=== PATIENT | female | born 1930 | race Caucasian/White ===

== ENCOUNTER 2017-12-22 17:02 | Observation (INO) | payer OTHER ==
[~2017-12-22] VITALS: Ht 160 cm; Wt 74.9 kg
[~2017-12-22 17:02] MED LIST: AMIT10TA6 PO; ASPCH81X PO; B-COTAB18 PO; CHOLTAB5 PO; DIGO0.122 PO; DOXY100T PO; FRS/40 PO; FSM70 PO; LEVA1NEB19 INH; LPT20 PO; NITR0.2D3 TD; NTRGSL/4 UT; POTA-327 PO; PRED-301 PO; PRED10TA PO; PRIM50TA29 PO; PRLSR20 PO; SALI0.6517 NAE; TIOTCAP INH; TRAMTAB5 PO; WARF1TAB PO
[2017-12-22] MEDS ORDERED: SYMIN160 INH (17:26)
[2017-12-22] MEDS ORDERED: WARF1TAB PO (17:26)
[2017-12-22] MEDS ORDERED: INSULIN IV INFUSION PROTOCOL STA (17:49)
[2017-12-22] MEDS ORDERED: NovoLIN-R INSULIN PER UNIT CHARGE IV STA (17:49)
[2017-12-22] MEDS ORDERED: CALCIUM GLUCONATE 10% 10 ML VIAL IV STA (17:49)
[2017-12-22 17:52] LABS: BASO % 0.3 %; BASO ABS # 0.03 K/uL (0-0.2); EOS % 1.1 %; EOS ABS # 0.11 K/uL (0-0.5); HEMATOCRIT 37.2 % (37-47); HEMOGLOBIN 11.9 g/dL (12.0-16.0); IG# 0.03 K/uL (0.00-0.02); LYMPH % 16.7 %; LYMPH ABS # 1.66 K/uL (1.2-3.4); MEAN CELL VOLUME 92.1 fL (80-100); MEAN CORPUSCULAR HEMOGLOBIN 29.5 pg (25-34); MEAN PLATELET VOLUME 9.4 fL (7.4-10.4); MONO % 5.5 %; MONO ABS # 0.55 K/uL (0.11-0.59); NEUT % 76.1 %; NEUT ABS # 7.56 K/uL (1.4-6.5); PLATELET COUNT 212 K/uL (130-400); RED CELL DISTRIBUTION WIDTH CV 13.9 % (11.5-14.5); RED CELL DISTRIBUTION WIDTH SD 47.1 fL (36.4-46.3); WHITE BLOOD COUNT 9.94 K/uL (4.8-10.8)
[2017-12-22] MEDS ORDERED: SODIUM CHLORIDE 0.9% 500ML 500 ML IV STA ×2 (17:55→18:32)
[2017-12-22] MEDS ORDERED: SEVERE STRESS LEVEL ONE (18:00)
[2017-12-22] MEDS ORDERED: DKA GOAL RANGE 150-250 mg/dl 1 EA ONE (18:00)
[2017-12-22] MEDS ORDERED: POTA10CA28 PO (18:01)
[2017-12-22] MEDS ORDERED: SPRIN/30 INH (18:01)
[2017-12-22] MEDS ORDERED: ACET-1256 PO (18:01)
[2017-12-22] MEDS ORDERED: LNX125 PO (18:01)
[2017-12-22] MEDS ORDERED: DOCU100C31 PO (18:01)
[2017-12-22] MEDS ORDERED: XPNINS31 PO (18:01)
[2017-12-22] MEDS ORDERED: FLUO10CA48 PO (18:01)
[2017-12-22] MEDS ORDERED: LEVA45AE INH (18:01)
[2017-12-22] MEDS ORDERED: ASPIRIN 81 MG CHEW PO STA (18:09)
[2017-12-22] MEDS ORDERED: SODIUM CHLORIDE 0.9% 1000ML 1,000 ML IV STA (18:09)
[2017-12-22 18:10] LABS: BLOOD UREA NITROGEN 14 mg/dl (7-18); CALCIUM 9.7 mg/dl (8.5-10.1); CARBON DIOXIDE 31 mmol/L (21-32); CREATININE 0.86 mg/dl (0.60-1.20); GLUCOSE 105 mg/dl (70-99); POTASSIUM 4.5 mmol/L (3.5-5.1); SODIUM 136 mmol/L (136-145)
[2017-12-22 18:15] LABS: CKMB 1.6 ng/ml (0.5-3.6)
--- NOTE | 2017-12-22 18:19 | DIAGNOSTIC IMAGING REPORT ---
CHEST ONE VIEW PORTABLE CLINICAL HISTORY: 87 years-old Female presenting with Chest Pain. TECHNIQUE: Portable upright AP view of the chest was obtained. COMPARISON: 08/26/2016. FINDINGS: Atherosclerosis of aortic arch. Cardiac silhouette enlarged. Pulmonary vascular prominence. Calcified thyroid nodule projects over the right paratracheal region. Hazy bibasilar opacities greater on the right. Small right pleural effusion. No large pneumothorax. Osseous structures normal. IMPRESSION: 1. Cardiomegaly with suggestion of volume overload. 2. Minimal bibasilar opacities likely atelectasis. 3. Small right pleural effusion. Electronically signed by: Lewis Bellamy M.D. 12/22/2017 6:17 PM Dictated Date/Time: 12/22/2017 6:16 PM
[2017-12-22] MEDS: NITROGLYCERIN 0.4 MG SL PER TAB CHARGE SL PRN ×2 (18:47→18:50)
[2017-12-22] MEDS ORDERED: INSULIN ASPART 100 UNITS/ML 3 ML PEN SC SCH (19:00)
[2017-12-22] MEDS ORDERED: OXGN (20:01)
[2017-12-22 21:11] LABS: ALBUMIN 3.5 gm/dl (3.4-5.0); TOTAL PROTEIN 6.6 gm/dl (6.4-8.2)
[2017-12-22 21:30] VITALS: BP 143/79; PULSE 64; TEMP 36.8; O2SAT 96; Ht 160 cm; Wt 74.9 kg
[2017-12-22 21:33] VITALS: O2SAT 98
[2017-12-22] MEDS ORDERED: ACETAMINOPHEN 325 MG TAB PO ONE (21:51)
[2017-12-22] MEDS ORDERED: ATORVASTATIN 20 MG TAB PO ONE (21:53)
[2017-12-22] MEDS ORDERED: TRAMADOL HCL 50 MG TAB PO ONE (21:53)
[2017-12-22] MEDS ORDERED: WARFARIN SOD 2 MG TAB PO ONE (22:00)
[2017-12-22] MEDS ORDERED: TRAMADOL HCL 50 MG TAB PO PRN (22:00)
[2017-12-22] MEDS ORDERED: NITROGLYCERIN 0.4 MG SL PER TAB CHARGE SL PRN (22:00)
[2017-12-22] MEDS ORDERED: HYDROmorphone INJ 0.5 MG/0.5 ML SYR IV PRN (22:00)
[2017-12-22] MEDS ORDERED: ACETAMINOPHEN 325 MG TAB PO PRN ×2 (22:00)
[2017-12-22] MEDS ORDERED: PROCHLORPERAZINE INJ 5 MG in SYRINGE 4 ML IV PRN (22:00)
[2017-12-22] MEDS ORDERED: LEVALBUTEROL/IPRATROPIUM NEB INH PRN (22:00)
[2017-12-22] MEDS ORDERED: IPRATROPIUM BROMIDE NEB SOLN 0.02% 2.5 ML VIAL INH PRN (22:30)
[2017-12-22] MEDS ORDERED: LEVALBUTEROL 1.25MG/0.5ML NEB INH PRN (22:30)
[2017-12-22 23:19] VITALS: BP 117/74; PULSE 67; TEMP 37; O2SAT 95
--- NOTE | 2017-12-23 00:19 | EMERGENCY ROOM VISIT NOTE ---
History Report prepared by Jennifer: Yoon Araujo Under the Supervision of: Dr. German Stanley D.O. First contact with patient: 17:35 Chief Complaint: CARDIAC ASSESSMENT Stated Complaint: TIGHTNESS IN CHEST, DOESN'T FEEL WELL- HX PE History of Present Illness The patient is an 87 year old female who presents to the Emergency Room with complaints of constant chest pain beginning 3 days ago. The patient describes her pain as "crushing". She also reports some shortness of breath. She denies any modifying or worsening factors. The patient states her pain does not radiate anywhere. The patient wears 2 L of oxygen at baseline. The patient takes Coumadin and her last level was 2.9. The patient has a history of PEs and atrial fibrillation. Pt denies headache, abdominal pain, change in vision, fevers, nausea, vomiting, diarrhea, pain with urination, and melena. Source of History: patient Onset: three days ago Position: chest Quality: other (crushing) Timing: constant Modifying Factors (Relieving): other (none) Associated Symptoms: + chest pain, + SOB, No abdominal pain Review of Systems See HPI for pertinent positives & negatives. A total of 10 systems reviewed and were otherwise negative. 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 (13) GERD (gastroesophageal reflux disease) (14) History of DVT (deep vein thrombosis) (15) History of pulmonary embolism (16) History of TIA (transient ischemic attack) (17) History of urinary calculi (18) Osteoporosis (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, postinflammatory (20) Tremor, essential (21) Warfarin anticoagulation Surgical Problems: (1) Status post cardiac catheterization (2) Status post cataract extraction (3) Status post hysterectomy Family History Lung disease FATHER Melanoma BROTHER Stroke BROTHER Social History Smoking Status: Never Smoker Marital Status: Housing Status: lives alone Occupation Status: retired Current/Historical Medications Scheduled Alendronate Sodium (Alendronate Sodium), 70 MG PO WK Amitriptyline Hcl (Elavil), 20 MG PO HS Aspirin (Aspirin Chewable), 81 MG PO DAILY Atorvastatin (Lipitor), 20 MG PO HS B-Complex Vitamins (Vitamin B Complex), 1 TAB PO DAILY Budesonide/Formoterol Fumarate (Symbicort 160/4.5 Inhaler ), 2 PUFFS INH BID Cholecalciferol (D-1000), 1,000 UNITS PO BID Digoxin (Digoxin), 0.125 MG PO 6XWK Docusate Sodium (Docusate Sodium), 1 CAP PO BID Fluoxetine (Prozac), 10 MG PO DAILY Furosemide (Lasix), 40 MG PO 5XWK Nitroglycerin (Nitrostat), 0.4 MG UT PRN Nitroglycerin (Nitroglycerin Transdermal), 1 PATCH TD ONAMOFFPM Omeprazole (Prilosec), 20 MG PO BID Potassium Chloride (Micro-K Ext Rel), 10 MEQ PO 5XWK Prednisone (Prednisone), 5 MG PO DAILY Primidone (Mysoline), 100 MG PO QPM Tiotropium [place] (Spiriva Handihaler), 1 CAP INH DAILY Tramadol/Acetaminophen (Ultracet), 1-2 TABS PO TID Warfarin Sodium (Coumadin), 2 MG PO DAILY Scheduled PRN Acetaminophen (Tylenol), 500 MG PO BID PRN for Pain Doxycycline Hyclate (Doxycycline Hyclate), 100 MG PO UD PRN for copd rescue kit Levalbuterol (Levalbuterol HCl), 1 VIAL PO Q4 PRN for Shortness of Breath Levalbuterol Tartrate (Levalbuterol Tartrate Hfa), 2 PUFF INH Q4 PRN for Wheezing Miscellaneous Medications Home O2 Therapy (Oxygen), 2 LITERS NA Allergies Coded Allergies: Adhesives (Verified Allergy, Unknown, `, 10/20/14) Fluticasone (Verified Allergy, Unknown, UNKNOWN, 10/20/14) Levofloxacin (Verified Allergy, Unknown, ITCHING AND REDNESS AT IV SITE, 10/20/14) Sulfa Drugs (Verified Allergy, Unknown, unknown, 10/20/14) Albuterol (Verified Adverse Reaction, Mild, TACHYCARDIA, 10/20/14) Physical Exam Vital Signs Date Time Temp Pulse Resp B/P (MAP) Pulse Ox O2 Delivery O2 Flow Rate FiO2 12/22/17 21:33 69 18 135/75 98 Nasal Cannula 2.0 12/22/17 21:30 36.8 64 16 143/79 96 Nasal Cannula 2.0 12/22/17 18:53 74 18 112/87 97 Room Air 12/22/17 18:05 Nasal Cannula 2.0 12/22/17 18:03 75 20 115/60 95 Nasal Cannula 2.0 12/22/17 17:28 68 12/22/17 17:19 99 Nasal Cannula 2.0 12/22/17 17:08 36.9 74 20 122/74 92 Room Air Physical Exam GENERAL: Sitting up in bed, alert, disheveled appearing, well nourished, no distress, non-toxic EYE EXAM: normal conjunctiva. OROPHARYNX: no exudate, no erythema, lips, buccal mucosa, and tongue normal and mucous membranes are moist NECK: supple, no nuchal rigidity, no adenopathy, non-tender LUNGS: Clear to auscultation. Normal chest wall mechanics HEART: no murmurs, S1 normal and S2 normal ABDOMEN: abdomen soft, non-tender, normo-active bowel sounds, no masses, no rebound or guarding. CHEST: No reproducible anterior chest wall pain BACK: Back is symmetrical on inspection and there is no deformity, no midline tenderness, no CVA tenderness. SKIN: no rashes and no bruising UPPER EXTREMITIES: upper extremities are grossly normal. LOWER EXTREMITIES: No pitting edema. NEURO EXAM: Normal sensorium, cranial nerves II-XII grossly intact, normal speech, no gross weakness of arms, no gross weakness of legs. Gross sensation intact. Medical Decision & Procedures ER Provider Diagnostic Interpretation: Radiology results as stated below per my review and the radiologist's interpretation: CHEST ONE VIEW PORTABLE FINDINGS: Atherosclerosis of aortic arch. Cardiac silhouette enlarged. Pulmonary vascular prominence. Calcified thyroid nodule projects over the right paratracheal region. Hazy bibasilar opacities greater on the right. Small right pleural effusion. No large pneumothorax. Osseous structures normal. IMPRESSION: 1. Cardiomegaly with suggestion of volume overload. 2. Minimal bibasilar opacities likely atelectasis. 3. Small right pleural effusion. Electronically signed by: Lewis Bellamy M.D. Laboratory Results 12/22/17 17:38 Red Blood Count 4.04, Mean Corpuscular Volume 92.1, Mean Corpuscular Hemoglobin 29.5, Mean Corpuscular Hemoglobin Concent 32.0, Mean Platelet Volume 9.4, Neutrophils (%) (Auto) 76.1, Lymphocytes (%) (Auto) 16.7, Monocytes (%) (Auto) 5.5, Eosinophils (%) (Auto) 1.1, Basophils (%) (Auto) 0.3, Neutrophils # (Auto) 7.56, Lymphocytes # (Auto) 1.66, Monocytes # (Auto) 0.55, Eosinophils # (Auto) 0.11, Basophils # (Auto) 0.03 12/22/17 17:38 Test 12/22/17 17:38 12/22/17 20:31 White Blood Count 9.94 K/uL (4.8-10.8) Red Blood Count 4.04 M/uL (4.2-5.4) Hemoglobin 11.9 g/dL (12.0-16.0) Hematocrit 37.2 % (37-47) Mean Corpuscular Volume 92.1 fL (80-100) Mean Corpuscular Hemoglobin 29.5 pg (25-34) Mean Corpuscular Hemoglobin Concent 32.0 g/dl (32-36) Platelet Count 212 K/uL (130-400) Mean Platelet Volume 9.4 fL (7.4-10.4) Neutrophils (%) (Auto) 76.1 % Lymphocytes (%) (Auto) 16.7 % Monocytes (%) (Auto) 5.5 % Eosinophils (%) (Auto) 1.1 % Basophils (%) (Auto) 0.3 % Neutrophils # (Auto) 7.56 K/uL (1.4-6.5) Lymphocytes # (Auto) 1.66 K/uL (1.2-3.4) Monocytes # (Auto) 0.55 K/uL (0.11-0.59) Eosinophils # (Auto) 0.11 K/uL (0-0.5) Basophils # (Auto) 0.03 K/uL (0-0.2) RDW Standard Deviation 47.1 fL (36.4-46.3) RDW Coefficient of Variation 13.9 % (11.5-14.5) Immature Granulocyte % (Auto) 0.3 % Immature Granulocyte # (Auto) 0.03 K/uL (0.00-0.02) Prothrombin Time 20.7 SECONDS (9.0-12.0) Prothromb Time International Ratio 2.0 (0.9-1.1) Anion Gap 5.0 mmol/L (3-11) Est Creatinine Clear Calc Drug Dose 42.7 ml/min Estimated GFR () 69.4 Estimated GFR (Non- 59.9 BUN/Creatinine Ratio 16.3 (10-20) Calcium Level 9.7 mg/dl (8.5-10.1) Total Creatine Kinase 67 U/L (26-192) Creatine Kinase MB 1.6 ng/ml (0.5-3.6) Creatine Kinase MB Ratio 2.4 (0-3.0) Magnesium Level 2.3 mg/dl (1.8-2.4) Total Bilirubin 0.3 mg/dl (0.2-1) Direct Bilirubin 0.2 mg/dl (0-0.2) Aspartate Amino Transf (AST/SGOT) 18 U/L (15-37) Alanine Aminotransferase (ALT/SGPT) 17 U/L (12-78) Alkaline Phosphatase 38 U/L (45-117) Pro-B-Type Natriuretic Peptide 644 pg/ml (0-1800) Total Protein 6.6 gm/dl (6.4-8.2) Albumin 3.5 gm/dl (3.4-5.0) Lipase 123 U/L (73-393) Laboratory results per my review. Medications Administered Medications (Trade) Dose Ordered Sig/Kiel Route Start Time Stop Time Status Last Admin Dose Admin Sodium Chloride 500 ml @ 999 mls/hr Q31M STAT IV 12/22/17 17:55 12/22/17 18:25 DC 12/22/17 17:55 999 MLS/HR Aspirin (Aspirin Chew) 324 mg NOW STAT PO 12/22/17 18:09 12/22/17 18:10 DC 12/22/17 18:46 324 MG Nitroglycerin (Nitrostat Tab) 0.4 mg Q5M PRN SL 12/22/17 18:15 12/22/17 22:11 DC 12/22/17 18:50 0.4 MG Sodium Chloride 500 ml @ 999 mls/hr Q31M STAT IV 12/22/17 18:32 12/22/17 19:02 DC 12/22/17 18:32 999 MLS/HR ECG Per My Interpretation Indication: chest pain Rate (beats per minute): 69 Rhythm: atrial fibrillation Findings: other (non specific st changes in inferior and anterior ) Comparison ECG Date: 02/21/16 Change: no significant change ED Course ED COURSE: Vital signs were reviewed and showed normal The patients medical record was reviewed The above diagnostic studies were performed and reviewed. ED treatments and interventions as stated above. 1744: The patient was evaluated in room B9. A complete history and physical examination was performed. 1755: Ordered Sodium Chloride 500 ml @ 999 mls/hr IV. 1809: Ordered Sodium Chloride 1000 ml @ 999 mls/hr IV, Aspirin 324 mg PO. 1815: Ordered Nitroglycerin 0.4 mg SL. 1832: Ordered Sodium Chloride 500 ml @ 999 mls/hr IV. 1840: The patient's chest pain is almost resolved with nitroglycerin. 2000: I reviewed the patient's case with Dr. Dhaliwal. He will evaluate the patient for further management. 2012: Upon reevaluation, the patient is resting comfortably.I discussed my findings with the patient and She understands and agrees with the treatment plan. Based on the patients age, coexisting illnesses, exam and lab findings the decision to treat as an inpatient was made. The patient remained stable while under my care. The patient will be evaluated for further management. Medical Decision Differential diagnoses includes but is not limited to acute coronary syndrome, myocardial infarction, pericarditis, pulmonary embolus, aortic dissection, pneumonia, pneumothorax, musculoskeletal, shingles, esophageal. Patient is an 87-year-old female who presents to ER for severe chest pain associated with shortness of breath which has been present for the past 3 days. CBC all BMP and troponins were unremarkable. INR was therapeutic and consequently PE was not pursued. EKG and chest x-ray were nondiagnostic. Patient was given nitroglycerin and had improvement of her symptoms. With her age and presentation did feel is reasonable to discuss case with internal medicine for possible observation overnight. Medication Reconcilliation Current Medication List: was personally reviewed by me Blood Pressure Screening Patient's blood pressure: Normal blood pressure Consults Time Called: 1949 Consulting Physician: Dr. Dhaliwal Returned Call: 2000 I reviewed the patient's case with Dr. Dhaliwal. He will evaluate the patient for further management. Impression Primary Impression: Precordial chest pain Scribe Attestation The scribe's documentation has been prepared under my direction and personally reviewed by me in its entirety. I confirm that the note above accurately reflects all work, treatment, procedures, and medical decision making performed by me. Departure Information Dispostion Being Evaluated By Hospitalist Referrals Joan Cole D.O. (PCP) Patient Instructions My [facility]
[2017-12-23] MEDS ORDERED: IV FLUIDS COMPLETED PRN (01:45)
[2017-12-23] MEDS ORDERED: LEVALBUTEROL/IPRATROPIUM NEB INH PRN (04:45)
[2017-12-23 04:52] VITALS: BP 122/76; PULSE 71; TEMP 36.6; O2SAT 95
--- NOTE | 2017-12-23 05:38 | HISTORY & PHYSICAL EXAMINATION ---
DATE OF ADMISSION: 12/22/2017 THE PATIENT'S PRIMARY CARE DOCTOR: Dr. Cole. CHIEF COMPLAINT: Chest pain. HISTORY OF PRESENT ILLNESS: History obtained from patient, family and records. 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 Recent confinement last September 2014 for shortness of breath secondary to multifactorial shortness of breath. In the last 3 days patient had chest tightness without radiation, shortness of breath on exertion. Denies weight gain. No unusual cough symptoms. Chest pain relieved by nitro given at the ER.. Patient currently comfortable. MEDICAL HISTORY: As above. A 2D echocardiogram from September 2014 showed EF of 66%, LVH, aortic valve sclerosis, moderate AR, severe TR SURGERIES: She has had hysterectomy, cataract surgery, and eye surgery. HOME MEDICATIONS: Include Xopenex, Lasix, home O2, nitroglycerin patch, Nitrostat, Prilosec, Micro-K, prednisone, Mysoline, Spiriva, Ultracet, digoxin, and Coumadin. ALLERGIES: ADHESIVE, ALBUTEROL, FLUTICASONE, LEVOFLOXACIN, SULFA. FAMILY HISTORY: Sarcoidosis, melanoma, stroke, and COPD. PERSONAL AND SOCIAL HISTORY: Nonsmoker, no chronic intake of alcoholic beverages. REVIEW OF SYSTEMS: As per HPI, all 10 systems reviewed, all other ROS negative. PHYSICAL EXAMINATION: VITAL SIGNS: Blood pressure was noted to be 140/80 MN 66 RR 18, temperature 36.8, sats 98 on 2 liters. GENERAL: Noted to be comfortable, but occasionally speaks in phrases to catch her breath (chronic as per grandson), looks younger for stated age. SKIN: Pallor, warm. HEENT: Pale palpebral conjunctivae. No ptosis. Dry mucosa. NECK: Supple, nontender. CHEST: No tenderness.Decreased breath sounds. HEART: irregular, palpable LE pulses ABDOMEN: Some distention, non-tender. EXTREMITIES: min LE edema. No tenderness, no gross deformities. NEUROLOGIC: Coherent, no gross focality other than chronic intentional tremors. LABORATORY DATA: Hemoglobin 11.9, hematocrit 37.2, white blood cells 10 platelets 212. Sodium noted to be 136, chloride 100, BUN 40, crea 1, glucose 105. BNP was normal. INR noted to be 2. Troponin 0 IMAGING DATA: Chest x-ray: atelectasis, cardiomegaly, interstitial fullness/ congestion EKG as per my interpretation, rate 70, aFib, T-wave flattening in inferior leads. ASSESSMENT AND PLAN: 1. Chest pain relieved by nitroglycerin possible acute coronary syndrome hx of nonocclusive CAD as per records 2. hypertension, stable 3. chronic respiratory failure secondary to steroid-dependent COPD/ILD on home O2 pulmonary status at baseline 4. chronic diastolic heart failure, the patient is euvolemic 5. AF, rate controlled/hx PE on Coumadin INR therapeutic chronic anemia, hemoglobin at baseline, 6. Chronic anemia, hemoglobin at baseline 7. prediabetes per records. Observation PCU. Continue aspirin for now for secondary CAD prevention. Follow cardiac markers, Cardio consult RE chest pain. (Patient known to [facility].) Further eval/management of chest pain as per cardiology. DVT prophylaxis, Coumadin, INR 2-3. Full code. MTDD
[2017-12-23 06:26] LABS: BASO % 0.5 %; BASO ABS # 0.04 K/uL (0-0.2); EOS % 3.3 %; EOS ABS # 0.26 K/uL (0-0.5); HEMATOCRIT 34.7 % (37-47); HEMOGLOBIN 11.1 g/dL (12.0-16.0); IG# 0.01 K/uL (0.00-0.02); LYMPH % 31.4 %; LYMPH ABS # 2.46 K/uL (1.2-3.4); MEAN CELL VOLUME 91.6 fL (80-100); MEAN CORPUSCULAR HEMOGLOBIN 29.3 pg (25-34); MEAN PLATELET VOLUME 9.1 fL (7.4-10.4); MONO % 7.5 %; MONO ABS # 0.59 K/uL (0.11-0.59); NEUT % 57.2 %; NEUT ABS # 4.48 K/uL (1.4-6.5); PLATELET COUNT 190 K/uL (130-400); RED CELL DISTRIBUTION WIDTH CV 14.2 % (11.5-14.5); RED CELL DISTRIBUTION WIDTH SD 47.8 fL (36.4-46.3); WHITE BLOOD COUNT 7.84 K/uL (4.8-10.8)
[2017-12-23 06:33] LABS: INR 1.8 (0.9-1.1)
[2017-12-23 07:04] LABS: CHOLESTEROL 122 mg/dl (0-200); LDL CHOLESTEROL CALCULATED 54 mg/dl
[2017-12-23 07:24] VITALS: BP 139/71; PULSE 56; TEMP 36.9; O2SAT 96
[2017-12-23] MEDS ORDERED: NITROGLYCERIN 0.2 MG/HR PATCH TD SCH (09:00)
[2017-12-23] MEDS ORDERED: DOCUSATE SODIUM 100 MG CAP PO SCH (09:00)
[2017-12-23] MEDS ORDERED: PANTOprazole SOD 40 MG TAB PO SCH (09:00)
[2017-12-23] MEDS ORDERED: TIOTROPIUM BROMIDE 5 PUFF/90 MCG INH INH SCH (09:00)
[2017-12-23] MEDS ORDERED: BUDESONIDE/FORMOTEROL FUMARATE 160/4.5 60 PUFFS/INHALER INH SCH (09:00)
[2017-12-23] MEDS ORDERED: FLUOXETINE HCL 10 MG CAP PO SCH (09:00)
[2017-12-23] MEDS ORDERED: ASPIRIN 81 MG CHEW PO SCH (09:00)
[2017-12-23 11:40] VITALS: BP 117/62; PULSE 62; TEMP 36.8; O2SAT 96
[2017-12-23] MEDS ORDERED: DIGOXIN 0.125 MG TAB PO SCH (13:00)
[2017-12-23 13:23] VITALS: BP 117/62; PULSE 62; TEMP 36.8; O2SAT 96
--- NOTE | 2017-12-23 13:23 | Discharge Instructions ---
Discharge Instructions Date of Service Dec 23, 2017. Admission Reason for Admission: Chest Pain Discharge Discharge Diagnosis / Problem: CHEST PAIN Discharge Goals Goal(s): Decrease discomfort, Improve function Activity Recommendations Activity Limitations: resume your previous activity . Instructions / Follow-Up Instructions / Follow-Up FOLLOWUP WITH FAMILY DOCTOR ON December AT 12:45PM FOLLOWUP WITH CARDIOLOGY PER FAMILY DOCTOR. Current Hospital Diet Patient's current hospital diet: AHA Diet (Heart Healthy) Discharge Diet Recommended Diet: AHA Diet (Heart Healthy) Pending Studies Studies pending at discharge: no Laboratory Results Lipid Panel Test 12/23/17 06:02 Range/Units Triglycerides Level 135 0-150 mg/dl Cholesterol Level 122 0-200 mg/dl HDL Cholesterol 41 mg/dl Cholesterol/HDL Ratio 3.0 LDL Cholesterol, Calculated 54 mg/dl Medical Emergencies . Who to Call and When: Medical Emergencies: If at any time you feel your situation is an emergency, please call 911 immediately. . Non-Emergent Contact Non-Emergency issues call your: Primary Care Provider . . "Provider Documentation" section prepared by Lai Cole. .
--- NOTE | 2017-12-23 16:35 | CARDIOLOGY CONSULTATION ---
DATE OF CONSULTATION: 12/23/2017 CONSULTATION REQUESTED BY: Frank Blanc MD REASON FOR CONSULTATION: Chest pain. HISTORY OF PRESENT ILLNESS: Mrs. Hernandez is a very pleasant 87-year-old woman who normally follows with Dr. Winter and Dennys Winn of our cardiology practice. She presented to [facility] on late evening of 12/22/2017 with a complaint of chest tightness. She states it started about 1 day ago and does not remember any trauma to her chest. She states that she does not remember any trauma to her chest. She just woke up one day and her chest felt tight. It was right in the center of her chest. She states that radiated across her left precordium but denied any further radiation into her shoulder, neck or jaw. She denied any associated shortness of breath, diaphoresis, nausea, palpitations, lightheadedness, dizziness, or syncope. She did not have any alleviating or aggravating factors, but she states the pain persisted all day, and then when she tried to go to bed, she could not get comfortable, so she came into the Emergency Department. In the Emergency Department, her workup was unremarkable and she was admitted to telemetry. She states that her pain finally resolved after receiving aspirin in the ER yesterday. PAST SURGICAL HISTORY: 1. Cardiac catheterization in 2001, showing no obstructive disease. 2. Total abdominal hysterectomy. 3. Cataract surgery. MEDICAL ILLNESSES: 1. Nonobstructive coronary artery disease with 30% to 40% LAD lesion. 2. Chronic obstructive lung disease with chronic interstitial lung disease, pulmonary fibrosis and chronic hypoxemia. 3. History of PE. 4. Persistent atrial fibrillation, on chronic Coumadin therapy. 5. Pulmonary hypertension with severe tricuspid regurgitation. 6. History of ITP. 7. Hypertension. 8. Dyslipidemia. FAMILY HISTORY: Noncontributory. SOCIAL HISTORY: Denies any alcohol, tobacco or recreational drug use. REVIEW OF SYSTEMS: As per HPI. All other review of systems reviewed and negative at this time. ALLERGIES: 1. ALBUTEROL. 2. BACTRIM. 3. FLOVENT. 4. LEVOFLOXACIN. 5. ADHESIVE TAPE. MEDICATIONS AN OUTPATIENT: 1. Aspirin 81 mg daily. 2. Atorvastatin 20 mg daily. 3. Digoxin 0.125 mg daily, 6 days a week. 4. Lasix 40 mg daily, 5 days a week. 5. Nitropatch daily. 6. Oxygen 4 liters nasal cannula with activity. 7. Spiriva daily. 8. Symbicort b.i.d. 9. Coumadin as directed by the Coumadin clinic. PHYSICAL EXAMINATION: VITALS: Temperature 36.8, pulse 62, respiratory rate 12, blood pressure 117/62. GENERAL: Awake, alert, oriented x3 in no acute distress. HEENT: Normocephalic, atraumatic. Pupils equal, round, reactive to light and accommodation. Extraocular muscles intact. Anicteric sclerae. Moist mucous membranes. NECK: No JVD, no bruit. CARDIOVASCULAR: Irregularly irregular with 4/6 holosystolic ejection murmur, greatest at the left sternal border midclavicular line fifth intercostal space without radiation. No rubs. PULMONARY: Poor air movement bilaterally with scattered rhonchi. No rales or wheezing. ABDOMEN: Bowel sounds x4, soft. No rebound, guarding, tenderness. No organomegaly. EXTREMITIES: No clubbing, cyanosis or edema. +2 pedal pulses bilaterally. SKIN: Warm and dry. MUSCULOSKELETAL: Direct palpation of her left 4th rib shows that it is stuck in exhalation with reproduction of her pain. TEST RESULTS: A 12-lead EKG performed in the Emergency Department independently reviewed at this time shows atrial fibrillation, 69 beats per minute with inferior T-wave flattening. No significant change compared to previous studies. IMPRESSION: 1. Costochondritis. 2. History of nonobstructive coronary artery disease. 3. Chronic obstructive pulmonary disease with chronic hypoxemia. 4. Pulmonary hypertension. 5. Persistent atrial fibrillation, rate controlled on chronic Coumadin therapy. RECOMMENDATIONS: It was my pleasure to see Resides in consultation today. Given the reproduction of her pain, I do believe she has suffered from costochondritis. So at this point I would treat her conservatively with NSAIDs and warm compresses. I have also demonstrated stretching movements to patient and her daughter to help return the rib to its normal positioning. A 2D echocardiogram will be completed as a matter of course, but should that come back unremarkable, then she will be discharged home with followup in our clinic in approximately 1 month. ____
--- NOTE | 2017-12-23 18:57 | Progress Note ---
Internal Med Progress Note Date of Service: Dec 23, 2017. Provider Documentation: SUBJECTIVE: resting comfortably daughter in room has point tenderness on the left side of the chest afebrile no sob no nausea OBJECTIVE: Vital Signs-as noted below Exam: General-alert and awake. Not in distress ENT-normal hearing Neck-no neck masses Lungs-cta b/l no wheezing or crackles Heart-s1 and s2 heard regular no murmurs point tenderness on left side of chest close to sternum Abdomen-soft bowel sounds present non tender no distension Extremities-no edema no erythema Neuro-alert and awake moves extremities Lab data as noted below. ASSESSMENT & PLAN: 1. 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 4. chronic diastolic heart failure, the patient is euvolemic. stable. 5. AF, rate controlled/hx PE on Coumadin INR therapeutic discharged home Vital Signs: Date Time Temp Pulse Resp B/P (MAP) Pulse Ox O2 Delivery O2 Flow Rate FiO2 12/23/17 13:23 36.8 62 20 96 Nasal Cannula 12/23/17 12:00 Room Air 12/23/17 11:40 36.8 62 20 117/62 (80) 96 12/23/17 08:00 Room Air 12/23/17 07:24 36.9 56 18 139/71 (93) 96 2.0 12/23/17 04:52 36.6 71 19 122/76 (91) 95 Nasal Cannula 2.0 12/23/17 04:00 Room Air 12/23/17 00:00 Room Air 12/22/17 23:19 37.0 67 16 117/74 (88) 95 Nasal Cannula 1.0 12/22/17 21:33 69 18 135/75 98 Nasal Cannula 2.0 12/22/17 21:30 36.8 64 16 143/79 96 Nasal Cannula 2.0 Lab Results: Results Past 24 Hours Test 12/22/17 20:31 12/22/17 22:09 12/23/17 06:02 Range/Units Magnesium Level 2.3 1.8-2.4 mg/dl Total Bilirubin 0.3 0.2-1 mg/dl Direct Bilirubin 0.2 0-0.2 mg/dl Aspartate Amino Transf (AST/SGOT) 18 15-37 U/L Alanine Aminotransferase (ALT/SGPT) 17 12-78 U/L Alkaline Phosphatase 38 45-117 U/L Pro-B-Type Natriuretic Peptide 644 0-1800 pg/ml Total Protein 6.6 6.4-8.2 gm/dl Albumin 3.5 3.4-5.0 gm/dl Lipase 123 73-393 U/L Troponin I < 0.015 < 0.015 0-0.045 ng/ml Digoxin Level 0.6 0.8-2.0 ng/ml White Blood Count 7.84 4.8-10.8 K/uL Red Blood Count 3.79 4.2-5.4 M/uL Hemoglobin 11.1 12.0-16.0 g/dL Hematocrit 34.7 37-47 % Mean Corpuscular Volume 91.6 80-100 fL Mean Corpuscular Hemoglobin 29.3 25-34 pg Mean Corpuscular Hemoglobin Concent 32.0 32-36 g/dl Platelet Count 190 130-400 K/uL Mean Platelet Volume 9.1 7.4-10.4 fL Neutrophils (%) (Auto) 57.2 % Lymphocytes (%) (Auto) 31.4 % Monocytes (%) (Auto) 7.5 % Eosinophils (%) (Auto) 3.3 % Basophils (%) (Auto) 0.5 % Neutrophils # (Auto) 4.48 1.4-6.5 K/uL Lymphocytes # (Auto) 2.46 1.2-3.4 K/uL Monocytes # (Auto) 0.59 0.11-0.59 K/uL Eosinophils # (Auto) 0.26 0-0.5 K/uL Basophils # (Auto) 0.04 0-0.2 K/uL RDW Standard Deviation 47.8 36.4-46.3 fL RDW Coefficient of Variation 14.2 11.5-14.5 % Immature Granulocyte % (Auto) 0.1 % Immature Granulocyte # (Auto) 0.01 0.00-0.02 K/uL Prothrombin Time 18.6 9.0-12.0 SECONDS Prothromb Time International Ratio 1.8 0.9-1.1 Triglycerides Level 135 0-150 mg/dl Cholesterol Level 122 0-200 mg/dl HDL Cholesterol 41 mg/dl LDL Cholesterol, Calculated 54 mg/dl VLDL Cholesterol, Calculated 27 mg/dl Cholesterol/HDL Ratio 3.0
--- NOTE | 2017-12-23 19:23 | Discharge Summary ---
Discharge Summary Date of Service Dec 23, 2017. Discharge Summary Admission Date: Dec 22, 2017 at 21:37 Discharge Date: Dec 23, 2017 Discharge Disposition: Home Principal Diagnosis: CHEST PAIN Secondary Diagnoses/Problems: chronic respiratory failure secondary to steroid-dependent COPD, interstitial lung disease, CAD as per records, aFib on Coumadin, chronic diastolic heart failure, hypertension, hyperlipidemia, history of ITP as per records, arthritis, prediabetes as per records, TIA as per records, history of tremors, chronic anemia (baseline hemoglobin 10-11). Procedures: CXR: 1. Cardiomegaly with suggestion of volume overload. 2. Minimal bibasilar opacities likely atelectasis. 3. Small right pleural effusion. Consultations: CARDIOLOGY Medication Reconciliation Continued Medications: Acetaminophen (Tylenol) 500 Mg Tab 500 MG PO BID PRN for Pain, TAB Alendronate Sodium (Alendronate Sodium) 70 Mg Tab 70 MG PO WK Amitriptyline Hcl (Elavil) 10 Mg Tab 20 MG PO HS Aspirin (Aspirin Chewable) 81 Mg Chew 81 MG PO DAILY Atorvastatin (Lipitor) 20 Mg Tab 20 MG PO HS, #30 B-Complex Vitamins (Vitamin B Complex) 1 Tab Tab 1 TAB PO DAILY Budesonide/Formoterol Fumarate (Symbicort 160/4.5 Inhaler ) Aero 2 PUFFS INH BID, INHALER Cholecalciferol (D-1000) 1,000 Unit Tab 1000 UNITS PO BID Digoxin (Digoxin) 0.125 Mg Tab 0.125 MG PO 6XWK Docusate Sodium (Docusate Sodium) 100 Mg Cap 1 CAP PO BID for 7 Days, #14 CAP Doxycycline Hyclate (Doxycycline Hyclate) 100 Mg Tab 100 MG PO UD PRN for copd rescue kit Fluoxetine (Prozac) 10 Mg Cap 10 MG PO DAILY, CAP Furosemide (Lasix) 40 Mg Tab 40 MG PO 5XWK Home O2 Therapy (Oxygen) Gas 2 LITERS NA Levalbuterol (Levalbuterol HCl) 0.31 Mg/3 Ml Nebu 1 VIAL PO Q4 PRN for Shortness of Breath Levalbuterol Tartrate (Levalbuterol Tartrate Hfa) 45 Mcg/Act Aer 2 PUFF INH Q4 PRN for Wheezing Nitroglycerin (Nitrostat) 0.4 Mg Tab 0.4 MG UT PRN, 0 Refills Nitroglycerin (Nitroglycerin Transdermal) 0.2 Mg/Hr Dis 1 PATCH TD ONAMOFFPM Omeprazole (Prilosec) 20 Mg Capcr 20 MG PO BID, 0 Refills Potassium Chloride (Micro-K Ext Rel) 10 Meq Capcr 10 MEQ PO 5XWK, CAP Prednisone (Prednisone) 5 Mg Tab 5 MG PO DAILY Primidone (Mysoline) 50 Mg Tab 100 MG PO QPM Tiotropium [place] (Spiriva Handihaler) 30 Puff/540 Mcg Aerp 1 CAP INH DAILY, INHALER Tramadol/Acetaminophen (Ultracet) 37.5 Mg/325 Mg Tab 1-2 TABS PO TID Warfarin Sodium (Coumadin) 1 Mg Tab 2 MG PO DAILY for 30 Days, #60 TAB 5 Refills Admission Information HPI (per Admitting provider): History obtained from patient, family and records. 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 Recent confinement last September 2014 for shortness of breath secondary to multifactorial shortness of breath. In the last 3 days patient had chest tightness without radiation, shortness of breath on exertion. Denies weight gain. No unusual cough symptoms. Chest pain relieved by nitro given at the ER.. Patient currently comfortable. Physical Exam (per Admitting): VITAL SIGNS: Blood pressure was noted to be 140/80 VA 66 RR 18, temperature 36.8, sats 98 on 2 liters. GENERAL: Noted to be comfortable, but occasionally speaks in phrases to catch her breath (chronic as per grandson), looks younger for stated age. SKIN: Pallor, warm. HEENT: Pale palpebral conjunctivae. No ptosis. Dry mucosa. NECK: Supple, nontender. CHEST: No tenderness.Decreased breath sounds. HEART: irregular, palpable LE pulses ABDOMEN: Some distention, non-tender. EXTREMITIES: min LE edema. No tenderness, no gross deformities. NEUROLOGIC: Coherent, no gross focality other than chronic intentional tremors. Hospital Course 1. 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 4. chronic diastolic heart failure, the patient is euvolemic. stable. 5. AF, rate controlled/hx PE on Coumadin INR therapeutic discharged home Total time spent on discharge = 35 MINUTES This includes examination of the patient, discharge planning, medication reconciliation, and communication with other providers. Discharge Instructions Discharge Instructions Date of Service Dec 23, 2017. Admission Reason for Admission: Chest Pain Discharge Discharge Diagnosis / Problem: CHEST PAIN Discharge Goals Goal(s): Decrease discomfort, Improve function Activity Recommendations Activity Limitations: resume your previous activity . Instructions / Follow-Up Instructions / Follow-Up FOLLOWUP WITH FAMILY DOCTOR ON December AT 12:45PM FOLLOWUP WITH CARDIOLOGY PER FAMILY DOCTOR. Current Hospital Diet Patient's current hospital diet: AHA Diet (Heart Healthy) Discharge Diet Recommended Diet: AHA Diet (Heart Healthy) Pending Studies Studies pending at discharge: no Laboratory Results Lipid Panel Test 12/23/17 06:02 Range/Units Triglycerides Level 135 0-150 mg/dl Cholesterol Level 122 0-200 mg/dl HDL Cholesterol 41 mg/dl Cholesterol/HDL Ratio 3.0 LDL Cholesterol, Calculated 54 mg/dl Medical Emergencies . Who to Call and When: Medical Emergencies: If at any time you feel your situation is an emergency, please call 911 immediately. . Non-Emergent Contact Non-Emergency issues call your: Primary Care Provider . .
[2017-12-23] MEDS ORDERED: AMITRIPTYLINE HCL 10 MG TAB PO SCH (21:00)
[2017-12-23] MEDS ORDERED: ATORVASTATIN 20 MG TAB PO SCH (21:00)
[2017-12-23] MEDS ORDERED: PRIMIDONE 50 MG TAB PO SCH (21:00)
== END 2017-12-23 14:00 | disposition home or self-care (01) ==
LOC: C.EDB 17:04 → ENRESERV 21:20 → C.MED 21:37 → EDBEDREQ 21:42
PROVIDERS: ADMIT Internal Medicine; ATTEND Internal Medicine
DX: M94.0 Chondrocostal junction syndrome [Tietze] (principal); J96.10 Chronic respiratory failure, unspecified whether with hypoxia or hypercapnia; I11.0 Hypertensive heart disease with heart failure; I50.32 Chronic diastolic (congestive) heart failure; J44.9 Chronic obstructive pulmonary disease, unspecified; E78.5 Hyperlipidemia, unspecified; D64.9 Anemia, unspecified; I48.1 Persistent atrial fibrillation; I27.20 Pulmonary hypertension, unspecified; R73.03 Prediabetes; J84.10 Pulmonary fibrosis, unspecified; M81.0 Age-related osteoporosis without current pathological fracture; G25.0 Essential tremor; Z79.52 Long term (current) use of systemic steroids; Z79.82 Long term (current) use of aspirin; Z90.710 Acquired absence of both cervix and uterus; Z86.711 Personal history of pulmonary embolism; Z99.81 Dependence on supplemental oxygen; Z88.2 Allergy status to sulfonamides; Z88.0 Allergy status to penicillin; Z86.718 Personal history of other venous thrombosis and embolism; Z87.442 Personal history of urinary calculi; Z82.3 Family history of stroke

== ENCOUNTER 2018-02-06 13:59 | Inpatient (IN) | payer OTHER ==
[~2018-02-06] VITALS: Ht 167.6 cm; Wt 77.3 kg
[~2018-02-06 13:59] MED LIST changes: +ACET-1256 PO; -DIGO0.122 PO; +DOCU100C31 PO; +FLUO10CA48 PO; -LEVA1NEB19 INH; +LEVA45AE INH; +LNX125 PO; +OXGN; -POTA-327 PO; +POTA10CA28 PO; -PRED10TA PO; -SALI0.6517 NAE; +SPRIN/30 INH; +SYMIN160 INH; -TIOTCAP INH; -WARF1TAB PO; +XPNINS31 PO
[2018-02-06 14:37] LABS: BASO % 0.6 %; BASO ABS # 0.06 K/uL (0-0.2); EOS % 1.3 %; EOS ABS # 0.14 K/uL (0-0.5); HEMATOCRIT 36.9 % (37-47); HEMOGLOBIN 11.9 g/dL (12.0-16.0); IG# 0.04 K/uL (0.00-0.02); LYMPH ABS # 1.08 K/uL (1.2-3.4); MEAN CELL VOLUME 91.3 fL (80-100); MEAN CORPUSCULAR HEMOGLOBIN 29.5 pg (25-34); MEAN CORPUSCULAR HGB CONC 32.2 g/dl (32-36); MEAN PLATELET VOLUME 9.2 fL (7.4-10.4); MONO % 8.1 %; MONO ABS # 0.88 K/uL (0.11-0.59); NEUT % 79.6 %; NEUT ABS # 8.64 K/uL (1.4-6.5); PLATELET COUNT 205 K/uL (130-400); RED CELL DISTRIBUTION WIDTH CV 13.9 % (11.5-14.5); RED CELL DISTRIBUTION WIDTH SD 46.7 fL (36.4-46.3); WHITE BLOOD COUNT 10.84 K/uL (4.8-10.8)
[2018-02-06 14:44] LABS: INR 1.6 (0.9-1.1); PTT PATIENT 27.9 SECONDS (21.0-31.0)
[2018-02-06 14:54] LABS: CALCIUM 9.7 mg/dl (8.5-10.1); CREATININE 0.84 mg/dl (0.60-1.20); POTASSIUM 4.1 mmol/L (3.5-5.1)
--- NOTE | 2018-02-06 15:00 | DIAGNOSTIC IMAGING REPORT ---
L RIBS UNILATERAL WITH PA CHEST CLINICAL HISTORY: fall trauma. Pain. COMPARISON STUDY: None FINDINGS: Nondisplaced cortical fracture anterior left ninth and 10th ribs. Remaining ribs are unremarkable. Lungs are considered negative for pneumothorax. Findings of mild atelectasis. IMPRESSION: Nondisplaced cortical fractures left anterior ninth and 10th ribs. No evidence for pneumothorax. The above report was generated using voice recognition software. It may contain grammatical, syntax or spelling errors. Electronically signed by: Dennys Burdick M.D. 02/06/2018 2:58 PM Dictated Date/Time: 02/06/2018 2:57 PM
--- NOTE | 2018-02-06 15:01 | DIAGNOSTIC IMAGING REPORT ---
CT HEAD WITHOUT CONTRAST (CT) CLINICAL HISTORY: Head pain status post trauma COMPARISON STUDY: 02/21/2016 TECHNIQUE: Axial CT of the brain is performed from the vertex to the skull base. IV contrast was not administered for this examination. A dose lowering technique was utilized adhering to the principles of ALARA. CT DOSE: 1228.53 mGy.cm FINDINGS: No intra or extra-axial mass lesions are visualized. There is no CT evidence of acute cortical infarction. There is no evidence of midline shift. There is no acute hemorrhage. No calvarial fractures are visualized. There are patchy white matter hypodensities likely on a small vessel basis. There is no evidence of pathologic ventricular dilatation. There is no evidence of acute sinusitis. There is a stable concavity involving the anterior reyes of the maxillary antrums. IMPRESSION: No acute intracranial findings Electronically signed by: Eddi Rivas M.D. 02/06/2018 3:00 PM Dictated Date/Time: 02/06/2018 2:58 PM
--- NOTE | 2018-02-06 15:02 | DIAGNOSTIC IMAGING REPORT ---
PELVIS 1 OR 2 VIEW ROUTINE, L FEMUR 2 VIEWS ROUTINE, R FEMUR 2 VIEWS ROUTINE CLINICAL HISTORY: Fall. Pelvic and leg pain. COMPARISON STUDY: Pelvis 07/11/2009. FINDINGS: No fracture or dislocation within the pelvis, hips, right femur, or left femur. 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 The sacrum appears intact. IMPRESSION: No acute fracture or dislocation within the pelvis, hips, right femur, or left femur. Electronically signed by: Sloan Arzola M.D. 02/06/2018 3:00 PM Dictated Date/Time: 02/06/2018 2:57 PM
[2018-02-06] MEDS ORDERED: TRAMADOL HCL 50 MG TAB PO STA (16:23)
--- NOTE | 2018-02-06 16:29 | EMERGENCY ROOM VISIT NOTE ---
History Report prepared by Scribe: Crissy Roblero Under the Supervision of: Dr. Tres Urbina D.O. First contact with patient: 14:01 Chief Complaint: FALL Stated Complaint: FALL History of Present Illness The patient is an 87 year old female who presents to the Emergency Room with complaints of a fall that occurred around 1000 this morning. She was brought to the ED via EMS. She ambulates with the help of a walker and states she tripped over her feet while making her bed this morning. She denies any LOC or dizziness. She was on the floor for about 2 to 3 hours before she "realized she couldn't get up on her own" and called her medical alert button to message EMS. EMS states she was 85% on 2L NC. The patient currently complains of left sided rib pain and bilateral knee pain. She denies any abdominal pain. Her daughter in law reports she has seemed "more shaky than normal recently" and is afraid the patient "might be developing Parkinson's". Source of History: patient, family, EMS Onset: 1000 this morning Position: other (global) Quality: other (fall) Timing: resolved Associated Symptoms: No LOC, No abdominal pain Review of Systems See HPI for pertinent positives & negatives. A total of 10 systems reviewed and were otherwise negative. 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 (13) GERD (gastroesophageal reflux disease) (14) History of DVT (deep vein thrombosis) (15) History of pulmonary embolism (16) History of TIA (transient ischemic attack) (17) History of urinary calculi (18) Osteoporosis (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, postinflammatory (20) Tremor, essential (21) Warfarin anticoagulation Surgical Problems: (1) Status post cardiac catheterization (2) Status post cataract extraction (3) Status post hysterectomy Family History Lung disease FATHER Melanoma BROTHER Stroke BROTHER Social History Smoking Status: Never Smoker Alcohol Use: none Drug Use: none Marital Status: Housing Status: lives alone Occupation Status: retired Current/Historical Medications Scheduled Alendronate Sodium (Alendronate Sodium), 70 MG PO WK Amitriptyline Hcl (Elavil), 20 MG PO HS Aspirin (Aspirin Chewable), 81 MG PO DAILY Atorvastatin (Lipitor), 20 MG PO HS B-Complex Vitamins (Vitamin B Complex), 1 TAB PO DAILY Budesonide/Formoterol Fumarate (Symbicort 160/4.5 Inhaler ), 2 PUFFS INH BID Cholecalciferol (D-1000), 1,000 UNITS PO BID Digoxin (Digoxin), 0.125 MG PO 6XWK Docusate Sodium (Docusate Sodium), 1 CAP PO BID Fluoxetine (Prozac), 10 MG PO DAILY Furosemide (Lasix), 40 MG PO 5XWK Nitroglycerin (Nitrostat), 0.4 MG UT PRN Nitroglycerin (Nitroglycerin Transdermal), 1 PATCH TD ONAMOFFPM Omeprazole (Prilosec), 20 MG PO BID Potassium Chloride (Micro-K Ext Rel), 10 MEQ PO 5XWK Prednisone (Prednisone), 5 MG PO DAILY Primidone (Mysoline), 100 MG PO QPM Tiotropium [place] (Spiriva Handihaler), 1 CAP INH DAILY Tramadol/Acetaminophen (Ultracet), 1-2 TABS PO TID Warfarin Sodium (Coumadin), 2 MG PO DAILY Scheduled PRN Acetaminophen (Tylenol), 500 MG PO BID PRN for Pain Doxycycline Hyclate (Doxycycline Hyclate), 100 MG PO UD PRN for copd rescue kit Levalbuterol (Levalbuterol HCl), 1 VIAL PO Q4 PRN for Shortness of Breath Levalbuterol Tartrate (Levalbuterol Tartrate Hfa), 2 PUFF INH Q4 PRN for Wheezing Miscellaneous Medications Home O2 Therapy (Oxygen), 2 LITERS NA Allergies Coded Allergies: Adhesives (Verified Allergy, Unknown, `, 02/06/18) Fluticasone (Verified Allergy, Unknown, UNKNOWN, 02/06/18) Levofloxacin (Verified Allergy, Unknown, ITCHING AND REDNESS AT IV SITE, ) Sulfa Drugs (Verified Allergy, Unknown, unknown, 02/06/18) Albuterol (Verified Adverse Reaction, Mild, TACHYCARDIA, 02/06/18) Physical Exam Vital Signs Date Time Temp Pulse Resp B/P (MAP) Pulse Ox O2 Delivery O2 Flow Rate FiO2 02/06/18 15:33 91 18 160/89 99 Nasal Cannula 3.0 02/06/18 14:10 37.6 92 21 149/96 98 Nasal Cannula 2.0 02/06/18 14:07 83 Physical Exam CONSTITUTIONAL/VITAL SIGNS: Reviewed / noted above. GENERAL: Non-toxic in appearance. INTEGUMENTARY: Warm, dry, and [place]. HEAD: Normocephalic. EYES: without scleral icterus or trauma. ENT/OROPHARYNX: clear and moist. LYMPHADENOPATHY/NECK: Is supple without lymphadenopathy or meningismus. RESPIRATORY: Lungs clear and equal. CHEST: Tenderness to palpation of left anterior and lateral chest wall CARDIOVASCULAR: Regular rate and rhythm. GI/ABDOMEN: Soft and nontender. No organomegaly or pulsatile mass. No rebound or guarding. Normal bowel sounds. EXTREMITIES: Warm and well perfused. Discomfort in bilateral femurs/hips with axial loading of LE, no obvious deformity. Abrasions noted to the lower extremities. BACK: No CVA tenderness. NEUROLOGICAL: Intact without focal deficits. PSYCHIATRIC: normal affect. MUSCULOSKELETAL: Normally developed with good muscle tone. Medical Decision & Procedures ER Provider Diagnostic Interpretation: Radiology results as stated below per my review and radiologist interpretation: PELVIS 1 OR 2 VIEW ROUTINE, L FEMUR 2 VIEWS ROUTINE, R FEMUR 2 VIEWS ROUTINE CLINICAL HISTORY: Fall. Pelvic and leg pain. COMPARISON STUDY: Pelvis 07/11/2009. FINDINGS: No fracture or dislocation within the pelvis, hips, right femur, or left femur. 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 The sacrum appears intact. IMPRESSION: No acute fracture or dislocation within the pelvis, hips, right femur, or left femur. Electronically signed by: Sloan Arzola M.D. 02/06/2018 3:00 PM PELVIS 1 OR 2 VIEW ROUTINE, L FEMUR 2 VIEWS ROUTINE, R FEMUR 2 VIEWS ROUTINE CLINICAL HISTORY: Fall. Pelvic and leg pain. COMPARISON STUDY: Pelvis 07/11/2009. FINDINGS: No fracture or dislocation within the pelvis, hips, right femur, or left femur. 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 The sacrum appears intact. IMPRESSION: No acute fracture or dislocation within the pelvis, hips, right femur, or left femur. Electronically signed by: Sloan Arzola M.D. 02/06/2018 3:[address] HEAD WITHOUT CONTRAST (CT) CLINICAL HISTORY: Head pain status post trauma COMPARISON STUDY: 02/21/2016 TECHNIQUE: Axial CT of the brain is performed from the vertex to the skull base. IV contrast was not administered for this examination. A dose lowering technique was utilized adhering to the principles of ALARA. CT DOSE: 1228.53 mGy.cm FINDINGS: No intra or extra-axial mass lesions are visualized. There is no CT evidence of acute cortical infarction. There is no evidence of midline shift. There is no acute hemorrhage. No calvarial fractures are visualized. There are patchy white matter hypodensities likely on a small vessel basis. There is no evidence of pathologic ventricular dilatation. There is no evidence of acute sinusitis. There is a stable concavity involving the anterior reyes of the maxillary antrums. IMPRESSION: No acute intracranial findings Electronically signed by: Eddi Rivas M.D. 02/06/2018 3:00 PM PELVIS 1 OR 2 VIEW ROUTINE, L FEMUR 2 VIEWS ROUTINE, R FEMUR 2 VIEWS ROUTINE CLINICAL HISTORY: Fall. Pelvic and leg pain. COMPARISON STUDY: Pelvis 07/11/2009. FINDINGS: No fracture or dislocation within the pelvis, hips, right femur, or left femur. 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 The sacrum appears intact. IMPRESSION: No acute fracture or dislocation within the pelvis, hips, right femur, or left femur. Electronically signed by: Sloan Arzola M.D. 02/06/2018 3:00 PM L RIBS UNILATERAL WITH PA CHEST CLINICAL HISTORY: fall trauma. Pain. COMPARISON STUDY: None FINDINGS: Nondisplaced cortical fracture anterior left ninth and 10th ribs. Remaining ribs are unremarkable. Lungs are considered negative for pneumothorax. Findings of mild atelectasis. IMPRESSION: Nondisplaced cortical fractures left anterior ninth and 10th ribs. No evidence for pneumothorax. The above report was generated using voice recognition software. It may contain grammatical, syntax or spelling errors. Electronically signed by: Dennys Burdick M.D. 02/06/2018 2:58 PM Laboratory Results 02/06/18 14:28 Red Blood Count 4.04, Mean Corpuscular Volume 91.3, Mean Corpuscular Hemoglobin 29.5, Mean Corpuscular Hemoglobin Concent 32.2, Mean Platelet Volume 9.2, Neutrophils (%) (Auto) 79.6, Lymphocytes (%) (Auto) 10.0, Monocytes (%) (Auto) 8.1, Eosinophils (%) (Auto) 1.3, Basophils (%) (Auto) 0.6, Neutrophils # (Auto) 8.64, Lymphocytes # (Auto) 1.08, Monocytes # (Auto) 0.88, Eosinophils # (Auto) 0.14, Basophils # (Auto) 0.06 02/06/18 14:28 Test 02/06/18 14:28 White Blood Count 10.84 K/uL (4.8-10.8) Red Blood Count 4.04 M/uL (4.2-5.4) Hemoglobin 11.9 g/dL (12.0-16.0) Hematocrit 36.9 % (37-47) Mean Corpuscular Volume 91.3 fL (80-100) Mean Corpuscular Hemoglobin 29.5 pg (25-34) Mean Corpuscular Hemoglobin Concent 32.2 g/dl (32-36) Platelet Count 205 K/uL (130-400) Mean Platelet Volume 9.2 fL (7.4-10.4) Neutrophils (%) (Auto) 79.6 % Lymphocytes (%) (Auto) 10.0 % Monocytes (%) (Auto) 8.1 % Eosinophils (%) (Auto) 1.3 % Basophils (%) (Auto) 0.6 % Neutrophils # (Auto) 8.64 K/uL (1.4-6.5) Lymphocytes # (Auto) 1.08 K/uL (1.2-3.4) Monocytes # (Auto) 0.88 K/uL (0.11-0.59) Eosinophils # (Auto) 0.14 K/uL (0-0.5) Basophils # (Auto) 0.06 K/uL (0-0.2) RDW Standard Deviation 46.7 fL (36.4-46.3) RDW Coefficient of Variation 13.9 % (11.5-14.5) Immature Granulocyte % (Auto) 0.4 % Immature Granulocyte # (Auto) 0.04 K/uL (0.00-0.02) Prothrombin Time 16.7 SECONDS (9.0-12.0) Prothromb Time International Ratio 1.6 (0.9-1.1) Activated Partial Thromboplast Time 27.9 SECONDS (21.0-31.0) Partial Thromboplastin Ratio 1.1 Anion Gap 4.0 mmol/L (3-11) Est Creatinine Clear Calc Drug Dose 47.6 ml/min Estimated GFR () 71.4 Estimated GFR (Non- 61.6 BUN/Creatinine Ratio 11.9 (10-20) Calcium Level 9.7 mg/dl (8.5-10.1) Laboratory results as stated above per my review. Medications Administered Medications (Trade) Dose Ordered Sig/Kiel Route Start Time Stop Time Status Last Admin Dose Admin Tramadol HCl (Ultram Tab) 50 mg NOW STAT PO 02/06/18 16:23 02/06/18 16:24 DC 02/06/18 16:37 50 MG ED Course 1403: Previous medical records were reviewed. The patient was evaluated in room A12A. A complete history and physical examination was performed. 1540: I reevaluated the patient. She is resting comfortably. I spoke to her family and most of the family states they don't want the patient to go to rehab , but the patient's daughter in law would like her to try doing rehab. We will do a road trial here in the ED and see how the patient ambulates with a walker. 1615: I reevaluated the patient. She did not do well with her ambulatory trial. She is agreeable to a stay in [facility], which will require a hospital stay. I will contact the inpatient medicine team. 1623: I discussed the patients case with MOUNA Villalpando, [facility] Hospitalist. The patient will be further evaluated. 1623: Ultram 50 mg PO. Medical Decision Differentials include: Close head injury, intracranial bleed, facial trauma, cervical spine trauma, chest and thoracic trauma, abdominal and intra-abdominal trauma, spine neurologic trauma, and extremity trauma. This is a 87-year-old female who presents to the ED with a chief complaint of a fall. The patient was making her bed this morning when she fell after she lost her balance. She laid on the ground for a couple of hours until she called EMS. The patient does take Coumadin. She does report striking her head. Her main complaint is that of left-sided thorax pain. The patient also on exam reports some discomfort in the bilateral hips and femurs. There is some minor abrasions noted to the lower extremities. No other obvious trauma is noted. Chest x-ray reveals a left ninth and 10th rib fracture, pelvis x-ray was negative as well as x-rays of the femurs. CBC is unremarkable. PRP is normal, INR is 1.6. The patient was told the results of the test. She does not have pain without movement but does have significant pain with movement. We attempted to ambulate her and she had significant difficulty with ambulation due to the pain. The family states that she becomes very confused with taking anything stronger than Ultram. The patient is agreeable to going to rehab or nursing care. She will be seen by the hospitalist for overnight observation PT/ OT evaluation tomorrow. She was given Ultram p.o. here. Head Trauma GCS Score: 15 Medication Reconcilliation Current Medication List: was personally reviewed by me Blood Pressure Screening Patient's blood pressure: Elevated blood pressure Blood pressure disposition: Referred to PCP (The patients elevated blood pressure will be further managed by the inpatient hospital medicine team) Consults Time Called: 1610 Consulting Physician[facility] Return[facility] Call: 1623 I discussed the patients case with MOUNA Villalpando [facility] Hospitalist. The patient will be further evaluated. Impression Primary Impression: Rib fractures Scribe Attestation The scribe's documentation has been prepared under my direction and personally reviewed by me in its entirety. I confirm that the note above accurately reflects all work, treatment, procedures, and medical decision making performed by me. Departure Information Dispostion Being Evaluated By Hospitalist Referrals Joan Cole D.O. (PCP) Patient Instructions My [facility]
[2018-02-06] MEDS ORDERED: WARF1TAB PO (17:26)
[2018-02-06] MEDS ORDERED: NITROGLYCERIN 0.4 MG SL PER TAB CHARGE SL PRN (18:30)
[2018-02-06] MEDS ORDERED: ACETAMINOPHEN 325 MG TAB PO PRN (18:30)
[2018-02-06] MEDS ORDERED: ONDANSETRON INJ 2 MG/ML 2 ML VIAL IV PRN (18:30)
[2018-02-06] MEDS ORDERED: TRAMADOL HCL 50 MG TAB PO PRN (19:00)
[2018-02-06] MEDS ORDERED: IV FLUIDS COMPLETED PRN (19:15)
--- NOTE | 2018-02-06 19:49 | DIAGNOSTIC IMAGING REPORT ---
L SHOULDER MIN 2 VIEWS ROUTINE HISTORY: 87 years-old Female fall, shoulder pain fall with acute left shoulder pain COMPARISON: Chest radiograph 12/22/2017 TECHNIQUE: 3 views of the left shoulder FINDINGS: Moderate glenohumeral and acromioclavicular osteoarthritis with mild bone demineralization. No acute fracture, dislocation or intra-articular loose body identified. Atherosclerosis of the aorta. Imaged lung jaramillo appear clear. IMPRESSION: Degenerative changes without acute fracture. The above report was generated using voice recognition software. It may contain grammatical, syntax or spelling errors. Electronically signed by: Tommy Flores M.D. 02/06/2018 7:48 PM Dictated Date/Time: 02/06/2018 7:46 PM
[2018-02-06] MEDS ORDERED: ACETAMINOPHEN 325 MG TAB ONE (20:03)
[2018-02-06] MEDS: ACETAMINOPHEN 325 MG TAB PO SCH (20:05)
--- NOTE | 2018-02-06 20:31 | History and Physical ---
History & Physical Date & Time of Service: Feb 06, 2018 at 18:34 Chief Complaint: FALL Primary Care Physician: Joan Cole D.O. History of Present Illness Source: patient, clinic records, hospital records Pt is 87 y/o F with PMH COPD oxygen dependent, CAD, A. fib on Coumadin and digoxin, chronic diastolic heart failure, hyperlipidemia, hypertension, arthritis presented to ER for fall. Pt states this morning ate breakfast, she then tried to make her bed and reports lost her balance and fell hitting back of head on her dresser. Pt denies LOC and reports remembering entire incident. States on floor and was unable to get up for approx 2 hours. C/O posterior OROSCO. Denies dizziness, CP, SOB prior or after fall. Pt c/o pain to L ribs and reports any movement of upper extremities or torso and deep breathing causes increased pain. Pt reports follows with Dr Cuenca - rheumatology for OA hips and knees and receives injections. She takes tramadol for pain. Pt reports chronic hip and knee pain and limited ROM, uses walker to ambulate. Pt denies any increased pain to hip or knees today. Denies fever/chills, diaphoresis, N/V/ D/C, dizziness, syncope, vision changes, neck pain, CP, SOB, orthopnea, palpitations, cough, sore throat, choking, otalgia, rhinorrhea, abdominal pain, paresthesias, extremity edema, rashes, urinary symptoms, weight loss. Past Medical/Surgical History Medical Problems: (1) Anemia Status: Resolved (2) Atrial fibrillation Status: Chronic (3) Back pain Status: Resolved (4) Benign hypertension Status: Chronic (5) CHF exacerbation Status: Resolved (6) Chronic back pain Status: Chronic (7) Chronic obstructive lung disease Status: Chronic (8) Chronic osteoarthritis Status: Chronic (9) Chronic respiratory failure Status: Chronic (10) COPD exacerbation Status: Resolved (11) COPD exacerbation Status: Resolved (12) Coronary artery disease Permanent Comment: 30-40% LAD lesion by cath Status: Chronic (13) Diastolic congestive heart failure Status: Chronic (14) Diverticular disease of colon Status: Chronic (15) DVT (deep venous thrombosis) Status: Resolved (16) Dyslipidemia Status: Chronic (17) Familial hypercholesterolemia Status: Chronic (18) GERD (gastroesophageal reflux disease) Status: Chronic (19) History of DVT (deep vein thrombosis) Status: Chronic (20) History of pulmonary embolism Status: Chronic (21) History of TIA (transient ischemic attack) Status: Chronic (22) History of urinary calculi Status: Chronic (23) Hypomagnesemia Status: Resolved (24) Osteoporosis Status: Chronic (25) Pulmonary fibrosis, postinflammatory Status: Chronic (26) Right flank pain Status: Resolved (27) SOB (shortness of breath) Status: Resolved (28) Supratherapeutic INR Status: Resolved (29) Tremor, essential Status: Chronic (30) Warfarin anticoagulation Status: Chronic Surgical Problems: (1) Status post cardiac catheterization Status: Chronic (2) Status post cataract extraction Status: Chronic (3) Status post hysterectomy Status: Chronic Family History Lung disease FATHER Melanoma BROTHER Stroke BROTHER Social History Smoking Status: Never Smoker Smokeless Tobacco Use: No Alcohol Use: none Drug Use: none Marital Status: Housing status: lives with family Occupational Status: retired Immunizations History of Influenza Vaccine: Yes Influenza Vaccine Date: Jul 11, 2013 History of Tetanus Vaccine?: Yes Tetanus Immunization Date: Jun 01, 2004 History of Pneumococcal: Yes Pneumococcal Date: Jul 29, 2004 History of Hepatitis B Vaccine: No Allergies Coded Allergies: Adhesives (Verified Allergy, Unknown, `, 02/06/18) Fluticasone (Verified Allergy, Unknown, UNKNOWN, 02/06/18) Levofloxacin (Verified Allergy, Unknown, ITCHING AND REDNESS AT IV SITE, ) Sulfa Drugs (Verified Allergy, Unknown, unknown, 02/06/18) Albuterol (Verified Adverse Reaction, Mild, TACHYCARDIA, 02/06/18) Home Medications Scheduled Alendronate Sodium (Alendronate Sodium), 70 MG PO WK Amitriptyline Hcl (Elavil), 20 MG PO HS Aspirin (Aspirin Chewable), 81 MG PO DAILY Atorvastatin (Lipitor), 20 MG PO HS B-Complex Vitamins (Vitamin B Complex), 1 TAB PO DAILY Budesonide/Formoterol Fumarate (Symbicort 160/4.5 Inhaler ), 2 PUFFS INH BID Cholecalciferol (D-1000), 1,000 UNITS PO DAILY Digoxin (Digoxin), 0.125 MG PO 6XWK Docusate Sodium (Docusate Sodium), 1 CAP PO BID Fluoxetine (Prozac), 10 MG PO DAILY Furosemide (Lasix), 40 MG PO 5XWK Nitroglycerin (Nitrostat), 0.4 MG UT PRN Nitroglycerin (Nitroglycerin Transdermal), 1 PATCH TD ONAMOFFPM Omeprazole (Prilosec), 20 MG PO BID Potassium Chloride (Micro-K Ext Rel), 10 MEQ PO 5XWK Prednisone (Prednisone), 5 MG PO DAILY Primidone (Mysoline), 100 MG PO QPM Tiotropium [place] (Spiriva Handihaler), 1 CAP INH DAILY Tramadol/Acetaminophen (Ultracet), 1-2 TABS PO TID Warfarin Sodium (Coumadin), 2 MG PO DAILY Scheduled PRN Acetaminophen (Tylenol), 500 MG PO BID PRN for Pain Doxycycline Hyclate (Doxycycline Hyclate), 100 MG PO UD PRN for copd rescue kit Levalbuterol (Levalbuterol HCl), 1 VIAL PO Q4 PRN for Shortness of Breath Levalbuterol Tartrate (Levalbuterol Tartrate Hfa), 2 PUFF INH Q4 PRN for Wheezing Miscellaneous Medications Home O2 Therapy (Oxygen), 2 LITERS NA Review of Systems See HPI for pertinent positives & negatives. All other systems reviewed and were otherwise negative Physical Exam Vital Signs Date Time Temp Pulse Resp B/P (MAP) Pulse Ox O2 Delivery O2 Flow Rate FiO2 02/06/18 18:10 90 02/06/18 17:59 92 25 02/06/18 17:29 90 22 02/06/18 17:13 160/89 02/06/18 16:59 87 21 98 02/06/18 15:33 91 18 160/89 99 Nasal Cannula 3.0 02/06/18 15:33 160/89 02/06/18 14:10 37.6 92 21 149/96 98 Nasal Cannula 2.0 02/06/18 14:07 83 02/06/18 14:04 149/96 General Appearance: WD/WN, + pertinent finding (resting comfortably in bed, any movement causes discomfort.) Head: normocephalic, + pertinent finding (+hematoma occipital region, no lacerations noted) Eyes: normal inspection, PERRL, EOMI, sclerae normal ENT: hearing grossly normal, pharynx normal, + pertinent finding (mucous membranes moist) Neck: supple, trachea midline, + pertinent finding (no spinous process tenderness to palpation, ROM intact) Respiratory/Chest: lungs clear, normal breath sounds, no respiratory distress, + pertinent finding (+tenderness to palpation left lateral lower ribs, + reproducible left sided CP with inspiration) Cardiovascular: + irregularly irregular (rate 90) Abdomen/GI: normal bowel sounds, non tender, soft Back: no CVA tenderness, + pertinent finding (no spinous process tenderness) Extremities/Musculoskelatal: no calf tenderness, no pedal edema, + pertinent finding (+tenderness to palpation bilateral hips and bilateral knees, very limited ROM of bilateral hips and bilateral knees. pedal pushes/pulls intact. Limited ROM bilateral shoulders pt reports causes L rib pain, +tenderness to palpation left shoulder, distal pulses intact, brisk capillary refill, sensation to light touch intact.) Neurologic/Psych: alert, normal mood/affect, oriented x 3 Skin: warm/dry, + pertinent finding (+ecchymosis to arms, left dorsal hand) Diagnostics Laboratory Results Last 24 Hours Test 02/06/18 14:28 02/06/18 19:24 White Blood Count 10.84 K/uL Red Blood Count 4.04 M/uL Hemoglobin 11.9 g/dL Hematocrit 36.9 % Mean Corpuscular Volume 91.3 fL Mean Corpuscular Hemoglobin 29.5 pg Mean Corpuscular Hemoglobin Concent 32.2 g/dl Platelet Count 205 K/uL Mean Platelet Volume 9.2 fL Neutrophils (%) (Auto) 79.6 % Lymphocytes (%) (Auto) 10.0 % Monocytes (%) (Auto) 8.1 % Eosinophils (%) (Auto) 1.3 % Basophils (%) (Auto) 0.6 % Neutrophils # (Auto) 8.64 K/uL Lymphocytes # (Auto) 1.08 K/uL Monocytes # (Auto) 0.88 K/uL Eosinophils # (Auto) 0.14 K/uL Basophils # (Auto) 0.06 K/uL RDW Standard Deviation 46.7 fL RDW Coefficient of Variation 13.9 % Immature Granulocyte % (Auto) 0.4 % Immature Granulocyte # (Auto) 0.04 K/uL Prothrombin Time 16.7 SECONDS Prothromb Time International Ratio 1.6 Activated Partial Thromboplast Time 27.9 SECONDS Partial Thromboplastin Ratio 1.1 Sodium Level 137 mmol/L Potassium Level 4.1 mmol/L Chloride Level 104 mmol/L Carbon Dioxide Level 29 mmol/L Anion Gap 4.0 mmol/L Blood Urea Nitrogen 10 mg/dl Creatinine 0.84 mg/dl Est Creatinine Clear Calc Drug Dose 47.6 ml/min Estimated GFR () 71.4 Estimated GFR (Non- 61.6 BUN/Creatinine Ratio 11.9 Random Glucose 105 mg/dl Calcium Level 9.7 mg/dl Total Creatine Kinase 153 U/L Troponin I 0.026 ng/ml Diagnostic Radiology RIGHT FEMUR X-RAY: IMPRESSION: No acute fracture or dislocation within the pelvis, hips, right femur, or left femur. LEFT FEMUR X-RAY: IMPRESSION: No acute fracture or dislocation within the pelvis, hips, right femur, or left femur. HEAD CT IMPRESSION: No acute intracranial findings PELVIS X-RAY: IMPRESSION: No acute fracture or dislocation within the pelvis, hips, right femur, or left femur. RIBS WITH CHEST X-RAY: IMPRESSION: Nondisplaced cortical fractures left anterior ninth and 10th ribs. No evidence for pneumothorax. L SHOULDER XRAY: IMPRESSION: Degenerative changes without acute fracture. Impression Assessment and Plan LEFT NINTH AND 10TH RIB FRACTURES S/P MECHANICAL FALL/AMBULATORY DYSFUNCTION Fell this morning, denies LOC. Reports on floor for [address] head in ER. Negative bilateral femur xrays, pelvis xray, L shoulder xray for acute fracture.CXR: +L 9&10 rib fractures, no pneumothorax. Pt unable to ambulate secondary to discomfort. Usually uses walker to ambulate. -CPK, troponin and EKG added -Will increase pt's home prednisone dose from 5mg daily to 20mg daily with increased extremity pain -tramadol scheduled Q8H for now -Tylenol scheduled Q8H for now -morphine prn pain -incentive spirometry -OT/PT eval COPD, OXYGEN AND STEROID DEPENDENT Denies increased SOB or cough. 98% on 2L oxygen NC. afebrile, no leukocytosis -prednisone increased as above -continue oxygen 2L NC -continue Spiriva, Symbicort daily and levalbuterol prn CHRONIC A-FIB ON COUMADIN Rate controlled. INR: 1.6 -digoxin level added -continue digoxin -continue coumadin -INR in am SUBTHERAPEUTIC INR INR: 1.6 -continue coumadin -monitor INR HTN BP: 160 systolic, suspect from pain -continue lasix OA Chronic hip and knee pain. Uses tramadol, follows with rheumatology for joint injections x 3 months. Today pt with very limited ROM of hips and knees bilaterally -will increase pt's prednisone to 20mg daily -tramadol scheduled Q8H for now -Tylenol scheduled Q8H for now CHRONIC ANEMIA Hgb: 11.9 (baseline) -monitor CBC HX CAD/CHRONIC DIASTOLIC HF No CP, other than left lateral ribs after fall, denies increased SOB -continue ASA, nitro patch, statin HLD -continue statin GERD -continue PPI DVT Prophylaxis -SCDs, on coumadin Disposition admit tele DNR/DNI as per discussion with pt Follows with Dr Cole for routine care Pt was seen with Dr Daniel. See addendum ADDENDUM: I have seen and examined the patient and agree with the assessment and plan above with the following exceptions. She is having a severe OA flare that appears to have been going on for at least 1-2 weeks from what I gather from the patient and her children who are at bedside. They state she has RA, however, Rheum notes report OA. Increasing steroids to help with inflammation as above (which has nothing to do with her pulmonary status which is stable), and schedule Tylenol and Tramadol to help with pain. Physical exam reveals a woman in alot of pain both in her ribs and in her hip and knee joints with significant pain with flexion/extension of the L>R knee and difficulty moving around the bed 2/2 pain. Would get the pain more under control prior to sending to rehabilitation. Fredy, Resuscitation Status DNR/DNI VTE Prophylaxis Will order VTE Prophylaxis: Yes Additional Copies To Joan Cole D.O.
[2018-02-06] MEDS: TRAMADOL HCL 50 MG TAB PO SCH (21:42)
[2018-02-06] MEDS: MoRPHine SULFATE 2 MG/ML CARP IV PRN (21:44)
[2018-02-06] MEDS: PRIMIDONE 50 MG TAB PO SCH (21:47)
[2018-02-06] MEDS: WARFARIN SOD 2 MG TAB PO SCH (21:48)
[2018-02-06] MEDS: ATORVASTATIN 20 MG TAB PO SCH (21:49)
[2018-02-06] MEDS: AMITRIPTYLINE HCL 10 MG TAB PO SCH (21:49)
[2018-02-06] MEDS: DOCUSATE SODIUM 100 MG CAP PO SCH (21:49)
[2018-02-06] MEDS: BUDESONIDE/FORMOTEROL FUMARATE 160/4.5 60 PUFFS/INHALER INH SCH (21:50)
[2018-02-06] MEDS: PANTOprazole SOD 40 MG TAB PO SCH (21:50)
[2018-02-06 22:19] VITALS: BP 146/84; PULSE 88; TEMP 36.8; O2SAT 96; Ht 167.6 cm; Wt 77.3 kg
[2018-02-06] MEDS: LEVALBUTEROL 0.31MG/3 ML VIAL INH PRN (22:23)
[2018-02-06 22:24] VITALS: PULSE 83; O2SAT 96
[2018-02-06] MEDS ORDERED: NURSING VERBAL MED ORDER ONE (22:45)
[2018-02-07] VITALS (11 sets, daily range): BP systolic 95–120; BP diastolic 59–68; PULSE 62–82; TEMP 36.5–36.9; O2SAT 93–98
[2018-02-07] MEDS: MoRPHine SULFATE 2 MG/ML CARP IV PRN ×3 (01:10→06:19)
[2018-02-07 04:56] LABS: HEMATOCRIT 34.2 % (37-47); HEMOGLOBIN 10.9 g/dL (12.0-16.0); MEAN CORPUSCULAR HGB CONC 31.9 g/dl (32-36); MEAN PLATELET VOLUME 9.2 fL (7.4-10.4); PLATELET COUNT 210 K/uL (130-400); RED CELL DISTRIBUTION WIDTH CV 14.2 % (11.5-14.5); RED CELL DISTRIBUTION WIDTH SD 47.3 fL (36.4-46.3); WHITE BLOOD COUNT 10.17 K/uL (4.8-10.8)
[2018-02-07 05:07] LABS: INR 1.4 (0.9-1.1)
[2018-02-07 05:14] LABS: CREATININE 0.77 mg/dl (0.60-1.20); POTASSIUM 3.8 mmol/L (3.5-5.1)
[2018-02-07] MEDS: TRAMADOL HCL 50 MG TAB PO SCH ×3 (06:17→21:33)
[2018-02-07] MEDS: ACETAMINOPHEN 325 MG TAB PO SCH ×3 (06:18→21:35)
[2018-02-07] MEDS: DOCUSATE SODIUM 100 MG CAP PO SCH ×2 (08:14→20:44)
[2018-02-07] MEDS: POTASSIUM CHLORIDE 10 MEQ TABCR PO SCH (08:14)
[2018-02-07] MEDS: CHOLECALCIFEROL 1000 INTER.UNIT TAB PO SCH (08:15)
[2018-02-07] MEDS: PANTOprazole SOD 40 MG TAB PO SCH ×2 (08:15→20:46)
[2018-02-07] MEDS: ASPIRIN 81 MG ECTAB PO SCH (08:16)
[2018-02-07] MEDS: FLUOXETINE HCL 10 MG CAP PO SCH (08:16)
[2018-02-07] MEDS: FUROSEMIDE 40 MG TAB PO SCH (08:17)
[2018-02-07] MEDS: BUDESONIDE/FORMOTEROL FUMARATE 160/4.5 60 PUFFS/INHALER INH SCH ×2 (08:17→20:44)
[2018-02-07] MEDS: NITROGLYCERIN 0.2 MG/HR PATCH TD SCH (08:17)
[2018-02-07] MEDS: TIOTROPIUM BROMIDE 5 PUFF/90 MCG INH INH SCH (08:18)
[2018-02-07] MEDS ORDERED: KETOROLAC TROMETHAMINE 15 MG/ML VIAL IV PRN (08:45)
[2018-02-07] MEDS ORDERED: HYDROmorphone INJ 2 MG/ML SYR/VIAL ONE (09:05)
[2018-02-07] MEDS ORDERED: KETOROLAC TROMETHAMINE 15 MG/ML VIAL ONE (09:06)
[2018-02-07] MEDS ORDERED: LIDODERM (LIDOCAINE) PATCH 5% TD ONE (09:45)
[2018-02-07] MEDS ORDERED: ENOXAPARIN 120 MG/0.8 ML SYR SQ ONE (09:45)
[2018-02-07] MEDS: DIGOXIN 0.125 MG TAB PO SCH (15:53)
[2018-02-07] MEDS: WARFARIN SOD 2 MG TAB PO SCH (15:53)
--- NOTE | 2018-02-07 18:07 | Progress Note ---
Progress Note Date of Service Feb 07, 2018. Progress Note Subjective: Patient was seen and examined today with daughter at bedside and patient reported having still the left rib pain. Patient had pain medication adjustments made. Patient also ordered full dose lovenox with plan to bridge to therapeutic Coumadin level Physical Exam General: pain as above, but speaking in full sentences Heart rate: bradycardic Lungs: CTABL, no wheezing Chest: left rib cage tenderness Abdomen: soft, nontender, + bowel sounds Extremities: no edema Plan: LEFT NINTH AND 10TH RIB FRACTURES S/P MECHANICAL FALL/AMBULATORY DYSFUNCTION -injury from falling down prior to admission: left ninth and tenth rib fracture -Negative CT head, Negative bilateral femur xrays / pelvis xray/ L shoulder xray for fracture. -pain medication for rib pain adjusted today: tramadol, Dilaudid, lidocaine patch -decrease prednisone for pain control as other medication modalities being used to treat the pain -incentive spirometry PT evaluation 02/07/18: "pt is NOT safe to be home alone. she will need continued skilled PT in inpt facililty once medically stable." OT evaluation 02/07/18 "Pt is not safe to return home, and will require continued OT at discharge prior to returning home alone" COPD, OXYGEN AND STEROID DEPENDENT Denies increased SOB or cough. 98% on 2L oxygen NC. afebrile, no leukocytosis -prednisone 5 mg daily -continue oxygen 2L NC -continue Spiriva, Symbicort daily and levalbuterol prn CHRONIC A-FIB ON COUMADIN -digoxin level added on this admission, continue digoxin -subtherapeutic INR 1.6 to 1.4, because patient has history of reported DVTs and Pulmonary embolism, patient is to receive full dose Lovenox while receiving coumadin to bridge to therapeutic INR CHRONIC ANEMIA Hgb: 11.9 (baseline) -monitor CBC HX CAD/CHRONIC DIASTOLIC HF No CP, other than left lateral ribs after fall, denies increased SOB -continue ASA, nitro patch, statin Blood pressure controlled today -continue lasix Positive urinalysis: empirically treat with ceftriaxone until urine culture returns Osteoarthritis Chronic hip and knee pain. Uses tramadol, follows with rheumatology for joint injections x 3 months. -pain medication, prednisone HLD -continue statin GERD -continue PPI DVT Prophylaxis: full dose lovenox with oral coumadin Code Status: DNR/DNI Family [phone]
[2018-02-07] MEDS ORDERED: CEFTRIAXONE SOD INJ 1 GM in DEXTROSE 5% ADD-VANTAGE 50ML 50 ML IV ONE (18:30)
[2018-02-07] MEDS: ATORVASTATIN 20 MG TAB PO SCH (20:45)
[2018-02-07] MEDS: AMITRIPTYLINE HCL 10 MG TAB PO SCH (20:45)
[2018-02-07] MEDS: PRIMIDONE 50 MG TAB PO SCH (20:46)
[2018-02-08 04:05] VITALS: BP 109/68; PULSE 68; TEMP 36.5; O2SAT 95
[2018-02-08 05:47] LABS: BASO % 0.2 %; BASO ABS # 0.02 K/uL (0-0.2); EOS % 2.6 %; EOS ABS # 0.23 K/uL (0-0.5); HEMATOCRIT 30.8 % (37-47); HEMOGLOBIN 9.8 g/dL (12.0-16.0); IG# 0.02 K/uL (0.00-0.02); LYMPH % 19.1 %; LYMPH ABS # 1.69 K/uL (1.2-3.4); MEAN CELL VOLUME 90.1 fL (80-100); MEAN CORPUSCULAR HEMOGLOBIN 28.7 pg (25-34); MEAN CORPUSCULAR HGB CONC 31.8 g/dl (32-36); MEAN PLATELET VOLUME 9.2 fL (7.4-10.4); MONO % 10.4 %; MONO ABS # 0.92 K/uL (0.11-0.59); NEUT % 67.5 %; NEUT ABS # 5.97 K/uL (1.4-6.5); PLATELET COUNT 205 K/uL (130-400); RED CELL DISTRIBUTION WIDTH CV 13.9 % (11.5-14.5); RED CELL DISTRIBUTION WIDTH SD 46.5 fL (36.4-46.3); WHITE BLOOD COUNT 8.85 K/uL (4.8-10.8)
[2018-02-08 06:04] LABS: INR 1.9 (0.9-1.1)
[2018-02-08 06:19] LABS: ALBUMIN 2.8 gm/dl (3.4-5.0); CALCIUM 8.7 mg/dl (8.5-10.1); CREATININE 0.91 mg/dl (0.60-1.20); POTASSIUM 4.3 mmol/L (3.5-5.1)
[2018-02-08 06:22] LABS: TOTAL PROTEIN 6.4 gm/dl (6.4-8.2)
[2018-02-08] MEDS: TRAMADOL HCL 50 MG TAB PO SCH ×3 (06:25→21:42)
[2018-02-08] MEDS: ACETAMINOPHEN 325 MG TAB PO SCH ×3 (06:26→21:42)
[2018-02-08 07:24] VITALS: BP 101/63; PULSE 64; TEMP 36.6; O2SAT 92
[2018-02-08] MEDS: FLUOXETINE HCL 10 MG CAP PO SCH (07:54)
[2018-02-08] MEDS: FUROSEMIDE 40 MG TAB PO SCH (07:54)
[2018-02-08] MEDS: POTASSIUM CHLORIDE 10 MEQ TABCR PO SCH (07:54)
[2018-02-08] MEDS: PANTOprazole SOD 40 MG TAB PO SCH ×2 (07:54→20:45)
[2018-02-08] MEDS: ASPIRIN 81 MG ECTAB PO SCH (07:54)
[2018-02-08] MEDS: CHOLECALCIFEROL 1000 INTER.UNIT TAB PO SCH (07:54)
[2018-02-08] MEDS: DOCUSATE SODIUM 100 MG CAP PO SCH ×2 (07:54→20:45)
[2018-02-08] MEDS: ENOXAPARIN 120 MG/0.8 ML SYR SQ SCH (07:55)
[2018-02-08] MEDS: NITROGLYCERIN 0.2 MG/HR PATCH TD SCH (07:55)
[2018-02-08] MEDS: TIOTROPIUM BROMIDE 5 PUFF/90 MCG INH INH SCH (07:55)
[2018-02-08] MEDS: BUDESONIDE/FORMOTEROL FUMARATE 160/4.5 60 PUFFS/INHALER INH SCH ×2 (07:56→20:43)
[2018-02-08] MEDS: POLYETHYLENE (MIRALAX) 17 GM PACK PO PRN (08:05)
[2018-02-08] MEDS: HYDROmorphone INJ 2 MG/ML SYR/VIAL IV PRN (11:53)
[2018-02-08] MEDS ORDERED: LIDODERM (LIDOCAINE) PATCH 5% TD ONE (12:30)
[2018-02-08 14:37] VITALS: PULSE 61; O2SAT 99
[2018-02-08] MEDS: LEVALBUTEROL 0.31MG/3 ML VIAL INH PRN (14:37)
--- NOTE | 2018-02-08 15:03 | Progress Note ---
Internal Med Progress Note Date of Service: Feb 08, 2018. Provider Documentation: Subjective: Patient reports pain of left ribcage but less pain compared to yesterday Physical Exam General: speaking in full sentences Heart rate: bradycardic Lungs: CTABL, no wheezing Chest: left rib cage tenderness Abdomen: soft, nontender, + bowel sounds Extremities: no edema ASSESSMENT & PLAN: LEFT NINTH AND 10TH RIB FRACTURES S/P MECHANICAL FALL/AMBULATORY DYSFUNCTION -injury from falling down prior to admission: left ninth and tenth rib fracture -Negative CT head, Negative bilateral femur xrays / pelvis xray/ L shoulder xray for fracture. -pain medication for rib pain adjusted today: tramadol, Dilaudid, lidocaine patch, prednisone -incentive spirometry PT evaluation 02/07/18: "pt is not safe to be home alone. she will need continued skilled PT in inpt facililty once medically stable." OT evaluation 02/07/18 "Pt is not safe to return home, and will require continued OT at discharge prior to returning home alone" COPD, OXYGEN AND STEROID DEPENDENT Denies increased SOB or cough. 98% on 2L oxygen NC. afebrile, no leukocytosis -prednisone 5 mg daily -continue oxygen 2L NC -continue Spiriva, Symbicort daily and levalbuterol prn CHRONIC A-FIB ON COUMADIN -digoxin level added on this admission, continue digoxin -subtherapeutic INR 1.6 to 1.4 on admission days, because patient has history of reported DVTs and Pulmonary embolism, patient was started on full dose Lovenox while receiving coumadin to bridge to therapeutic INR, INR on 02/08/18 1.9, if INR is 2 or above by tomorrow then full dose Lovenox can be held CHRONIC ANEMIA Hgb downtrending 11.9 to 10.9 to 9.8, decrease may be from hematoma from injury but will continue to trend CBC while patient is on Lovenox and coumadin HX CAD/CHRONIC DIASTOLIC HF -continue ASA, nitro patch, statin Blood pressure controlled today -continue lasix Positive urinalysis on 02/07/18 and patient was empirically started on ceftriaxone for urinary tract infection, the urine culture had high counts of 3 organisms and recommendations is to repeat the urine study, will continue ceftriaxone for now Hyponatremia possibly from pain vs thyroid dysfunction Serum sodium was 127 and repeat 128. serum osmolality 271 indicates a hypotonic hyponatremia. urine osmolality and urine sodium tests to be collected TSH is 0.225 which is low but T4 is normal, will send free T4 and total T3 Osteoarthritis Chronic hip and knee pain. Uses tramadol, follows with rheumatology for joint injections x 3 months. -pain medication, prednisone HLD -continue statin GERD -continue PPI DVT Prophylaxis: full dose lovenox with oral coumadin Code Status: DNR/DNI Family [phone] Vital Signs: Date Time Temp Pulse Resp B/P (MAP) Pulse Ox O2 Delivery O2 Flow Rate FiO2 02/08/18 14:37 61 18 99 Nasal Cannula 2.0 02/08/18 08:15 Nasal Cannula 2.0 02/08/18 07:24 36.6 64 18 101/63 (76) 92 Nasal Cannula 2.0 02/08/18 04:05 36.5 68 16 109/68 (82) 95 Nasal Cannula 2.0 02/08/18 04:00 Nasal Cannula 2.0 02/08/18 00:15 Nasal Cannula 2.0 02/07/18 23:23 36.7 66 18 98/63 (75) 93 Nasal Cannula 2.0 02/07/18 20:00 95 Room Air 02/07/18 19:19 36.7 64 20 95/59 (71) 96 02/07/18 16:00 95 Room Air 02/07/18 15:53 66 02/07/18 15:37 36.5 70 20 104/62 (76) 95 Lab Results: Results Past 24 Hours Test 02/08/18 05:23 02/08/18 07:39 02/08/18 12:59 02/08/18 14:49 Range/Units White Blood Count 8.85 4.8-10.8 K/uL Red Blood Count 3.42 4.2-5.4 M/uL Hemoglobin 9.8 12.0-16.0 g/dL Hematocrit 30.8 37-47 % Mean Corpuscular Volume 90.1 80-100 fL Mean Corpuscular Hemoglobin 28.7 25-34 pg Mean Corpuscular Hemoglobin Concent 31.8 32-36 g/dl Platelet Count 205 130-400 K/uL Mean Platelet Volume 9.2 7.4-10.4 fL Neutrophils (%) (Auto) 67.5 % Lymphocytes (%) (Auto) 19.1 % Monocytes (%) (Auto) 10.4 % Eosinophils (%) (Auto) 2.6 % Basophils (%) (Auto) 0.2 % Neutrophils # (Auto) 5.97 1.4-6.5 K/uL Lymphocytes # (Auto) 1.69 1.2-3.4 K/uL Monocytes # (Auto) 0.92 0.11-0.59 K/uL Eosinophils # (Auto) 0.23 0-0.5 K/uL Basophils # (Auto) 0.02 0-0.2 K/uL RDW Standard Deviation 46.5 36.4-46.3 fL RDW Coefficient of Variation 13.9 11.5-14.5 % Immature Granulocyte % (Auto) 0.2 % Immature Granulocyte # (Auto) 0.02 0.00-0.02 K/uL Prothrombin Time 19.2 9.0-12.0 SECONDS Prothromb Time International Ratio 1.9 0.9-1.1 Sodium Level 127 128 136-145 mmol/L Potassium Level 4.3 3.5-5.1 mmol/L Chloride Level 95 98-107 mmol/L Carbon Dioxide Level 27 21-32 mmol/L Anion Gap 5.0 3-11 mmol/L Blood Urea Nitrogen 19 7-18 mg/dl Creatinine 0.91 0.60-1.20 mg/dl Est Creatinine Clear Calc Drug Dose 43.7 ml/min Estimated GFR () 64.8 Estimated GFR (Non- 55.9 BUN/Creatinine Ratio 21.0 10-20 Random Glucose 97 70-99 mg/dl Calcium Level 8.7 8.5-10.1 mg/dl Total Bilirubin 0.4 0.2-1 mg/dl Aspartate Amino Transf (AST/SGOT) 17 15-37 U/L Alanine Aminotransferase (ALT/SGPT) 16 12-78 U/L Alkaline Phosphatase 37 45-117 U/L Total Protein 6.4 6.4-8.2 gm/dl Albumin 2.8 3.4-5.0 gm/dl Globulin 3.6 2.5-4.0 gm/dl Albumin/Globulin Ratio 0.8 0.9-2 Osmolality 271 280-300 mOsm/kg Thyroid Stimulating Hormone (TSH) 0.225 0.300-4.500 uIu/ml Thyroxine (T4) 4.6 4.5-10.9 mcg/dl
[2018-02-08 16:01] VITALS: BP 97/58; PULSE 64; TEMP 36.3; O2SAT 96
[2018-02-08] MEDS: DIGOXIN 0.125 MG TAB PO SCH (16:20)
[2018-02-08] MEDS: WARFARIN SOD 2 MG TAB PO SCH (16:21)
[2018-02-08] MEDS ORDERED: CEFTRIAXONE SOD INJ 1 GM in DEXTROSE 5% ADD-VANTAGE 50ML 50 ML IV SCH (18:00)
[2018-02-08 19:28] LABS: OSMOLALITY,URINE 188 mOms/kg (500-800)
[2018-02-08 19:32] LABS: SODIUM RANDOM URINE 9 mEq/L
[2018-02-08] MEDS: ATORVASTATIN 20 MG TAB PO SCH (20:46)
[2018-02-08] MEDS: PRIMIDONE 50 MG TAB PO SCH (20:46)
[2018-02-08] MEDS: AMITRIPTYLINE HCL 10 MG TAB PO SCH (20:46)
[2018-02-08 22:44] VITALS: BP 104/64; PULSE 67; TEMP 36.9; O2SAT 94
[2018-02-09] VITALS (8 sets, daily range): BP systolic 92–132; BP diastolic 46–84; PULSE 50–79; TEMP 36.5–36.8; O2SAT 90–97
[2018-02-09] MEDS: TRAMADOL HCL 50 MG TAB PO SCH ×3 (05:51→21:21)
[2018-02-09] MEDS: ACETAMINOPHEN 325 MG TAB PO SCH (05:52)
[2018-02-09 05:54] LABS: HEMATOCRIT 30.3 % (37-47); HEMOGLOBIN 9.7 g/dL (12.0-16.0); MEAN CELL VOLUME 90.2 fL (80-100); MEAN CORPUSCULAR HEMOGLOBIN 28.9 pg (25-34); MEAN PLATELET VOLUME 9.1 fL (7.4-10.4); PLATELET COUNT 209 K/uL (130-400); RED CELL DISTRIBUTION WIDTH CV 13.9 % (11.5-14.5); RED CELL DISTRIBUTION WIDTH SD 45.8 fL (36.4-46.3); WHITE BLOOD COUNT 7.09 K/uL (4.8-10.8)
[2018-02-09 06:33] LABS: ALBUMIN 2.9 gm/dl (3.4-5.0); CREATININE 0.89 mg/dl (0.60-1.20); POTASSIUM 4.8 mmol/L (3.5-5.1)
[2018-02-09 06:35] LABS: TOTAL PROTEIN 6.1 gm/dl (6.4-8.2)
[2018-02-09] MEDS: POLYETHYLENE (MIRALAX) 17 GM PACK PO PRN (08:19)
[2018-02-09] MEDS: FLUOXETINE HCL 10 MG CAP PO SCH (08:19)
[2018-02-09] MEDS: PANTOprazole SOD 40 MG TAB PO SCH ×2 (08:20→21:16)
[2018-02-09] MEDS: FUROSEMIDE 40 MG TAB PO SCH (08:20)
[2018-02-09] MEDS: ASPIRIN 81 MG ECTAB PO SCH (08:20)
[2018-02-09] MEDS: DOCUSATE SODIUM 100 MG CAP PO SCH ×2 (08:20→21:17)
[2018-02-09] MEDS: CHOLECALCIFEROL 1000 INTER.UNIT TAB PO SCH (08:21)
[2018-02-09] MEDS: NITROGLYCERIN 0.2 MG/HR PATCH TD SCH (08:21)
[2018-02-09] MEDS: POTASSIUM CHLORIDE 10 MEQ TABCR PO SCH (08:22)
[2018-02-09] MEDS: ENOXAPARIN 120 MG/0.8 ML SYR SQ SCH (08:22)
[2018-02-09] MEDS: LIDODERM (LIDOCAINE) PATCH 5% TD SCH (08:22)
[2018-02-09] MEDS: TIOTROPIUM BROMIDE 5 PUFF/90 MCG INH INH SCH (08:23)
[2018-02-09] MEDS: BUDESONIDE/FORMOTEROL FUMARATE 160/4.5 60 PUFFS/INHALER INH SCH ×2 (08:23→21:14)
[2018-02-09] MEDS ORDERED: ENOXAPARIN 1.5 MG/KG SQ SCH (09:00)
[2018-02-09] MEDS: HYDROmorphone INJ 2 MG/ML SYR/VIAL IV PRN (09:53)
[2018-02-09] MEDS ORDERED: KETOROLAC TROMETHAMINE 30 MG/ML VIAL IV STA (10:38)
[2018-02-09] MEDS ORDERED: SENNA 8.6 MG TAB PO STA (10:43)
[2018-02-09] MEDS ORDERED: HYDROmorphone INJ 2 MG/ML SYR/VIAL IV PRN (10:45)
[2018-02-09] MEDS ORDERED: NURSING VERBAL MED ORDER ONE ×2 (11:00→18:15)
[2018-02-09] MEDS ORDERED: TAP WATER ENEMA PR ONE (11:15)
--- NOTE | 2018-02-09 12:02 | DIAGNOSTIC IMAGING REPORT ---
KUB CLINICAL HISTORY: constipation pain COMPARISON STUDY: No previous studies for comparison. FINDINGS: Nonobstructive bowel pattern. No evidence for fecal impaction. Degenerative change of the osseous structures. No secondary signs of free air. IMPRESSION: No evidence for obstruction or fecal impaction. The above report was generated using voice recognition software. It may contain grammatical, syntax or spelling errors. Electronically signed by: Dennys Burdick M.D. 02/09/2018 12:00 PM Dictated Date/Time: 02/09/2018 11:59 AM
--- NOTE | 2018-02-09 12:02 | DIAGNOSTIC IMAGING REPORT ---
L RIBS UNILATERAL WITH PA CHEST CLINICAL HISTORY: left rib fractures, persistent pain COMPARISON STUDY: 02/06/2018 FINDINGS: The erect chest reveals cardiac enlargement. There are small bilateral pleural effusions. There is no focal pulmonary consolidation. There are subtle fractures of the left seventh and ninth ribs. IMPRESSION: Subtle fractures of the left seventh and ninth ribs. No evidence of pneumothorax. Electronically signed by: Eddi Rivas M.D. 02/09/2018 12:00 PM Dictated Date/Time: 02/09/2018 11:58 AM
[2018-02-09] MEDS: OXYCODONE/ACETAMINOPHEN 5-325 TAB PO PRN ×2 (12:08→16:34)
[2018-02-09] MEDS: LEVALBUTEROL 0.31MG/3 ML VIAL INH PRN ×2 (13:33→21:54)
--- NOTE | 2018-02-09 14:22 | Progress Note ---
Internal Med Progress Note Date of Service: Feb 09, 2018. Provider Documentation: Subjective: Patient seen today having more pain than yesterday. Patient denies having bowel movement since Tuesday Physical Exam General: speaking in full sentences Heart rate: bradycardic Lungs: CTABL, no wheezing Chest: left rib cage tenderness Abdomen: soft, nontender, + bowel sounds Extremities: no edema ASSESSMENT & PLAN: LEFT NINTH AND 10TH RIB FRACTURES S/P MECHANICAL FALL/AMBULATORY DYSFUNCTION -injury from falling down prior to admission: left ninth and tenth rib fracture on admission CXR / rib X ray -Negative CT head, Negative bilateral femur x-rays / pelvis x-ray/ L shoulder x- ray for fracture. -pain medication for rib pain adjusted today: continue tramadol, Dilaudid switched to regularly q6h unless patient is not in severe pain or if patient refuses, changed acetaminophen to percocet, continue lidocaine patch, continue prednisone -continue incentive spirometry -repeat rib X ray 02/09/18: Subtle fractures of the left seventh and ninth ribs. No evidence of pneumothorax. Constipation -KUB 02/09/18 Nonobstructive bowel pattern. No evidence for fecal impaction. Degenerative change of the osseous structures. No secondary signs of free air. -continue Miralax, adding senna, requested nurse to give enema Empirically treated for potential urinary tract infection -Positive urinalysis on 02/07/18 and patient was empirically started on ceftriaxone for urinary tract infection, the urine culture had high counts of 3 organisms and recommendations is to repeat the urine study, ceftriaxone continued until 02/08/18 as the repeat urinalysis shows no bacteria Hyponatremia on 02/08/18 with serum sodium 127 to 138 -possibly from pain vs thyroid dysfunction -Serum sodium was 127 and repeat 128. serum osmolality 271 indicates a hypotonic hyponatremia. urine osmolality 188 and urine sodium 9 TSH is 0.225 which is low but T4 is normal 4.6, free T4 0.94 normal, and total T3 0.63 somewhat low normal, recommend Thyroid function tests to be repeated in 3 weks -Serum sodium 131 on 02/09/18 without intervention, continue to trend electrolytes COPD, OXYGEN AND STEROID DEPENDENT -prednisone 5 mg daily -continue nasal cannula -continue Spiriva, Symbicort daily and levalbuterol prn CHRONIC A-FIB ON COUMADIN -digoxin level added on this admission, continue digoxin -subtherapeutic INR 1.6 to 1.4 on admission days, because patient has history of reported DVTs and Pulmonary embolism, patient was started on full dose Lovenox while receiving coumadin to bridge to therapeutic INR, INR on 02/08/18 1.9, INR is 2 and no further Lovenox is needed, continue coumadin CHRONIC ANEMIA Hgb downtrending 11.9 to 10.9 to 9.8 to 9.7, decrease may be from hematoma from injury and from blood draws HX CAD/CHRONIC DIASTOLIC HF -continue ASA, nitro patch, statin Blood pressure controlled today -continue lasix Osteoarthritis Chronic hip and knee pain. Uses tramadol, follows with rheumatology for joint injections x 3 months. -continue pain medication management and prednisone HLD -continue statin GERD -continue PPI PT evaluation 02/07/18: "pt is not safe to be home alone. she will need continued skilled PT in inpt facililty once medically stable." OT evaluation 02/07/18 "Pt is not safe to return home, and will require continued OT at discharge prior to returning home alone" PT evlauation 02/08/18 " pt improving from yesterday. pt will need continued PT at inpt facility" DVT Prophylaxis: coumadin Code Status: DNR/DNI Family [phone] Vital Signs: Date Time Temp Pulse Resp B/P (MAP) Pulse Ox O2 Delivery O2 Flow Rate FiO2 02/09/18 13:35 71 18 93 Room Air 02/09/18 08:18 68 116/71 (86) 02/09/18 08:00 Nasal Cannula 2.0 02/09/18 07:23 36.5 50 20 92/46 (61) 97 02/09/18 00:05 Nasal Cannula 2.0 02/08/18 22:44 36.9 67 18 104/64 (77) 94 Nasal Cannula 2.0 02/08/18 20:05 Nasal Cannula 2.0 02/08/18 16:20 60 02/08/18 16:01 36.3 64 18 97/58 (71) 96 Nasal Cannula 2.0 02/08/18 16:00 Nasal Cannula 2.0 02/08/18 14:37 61 18 99 Nasal Cannula 2.0 Lab Results: Results Past 24 Hours Test 02/08/18 18:30 02/09/18 05:28 Range/Units Urine Color YELLOW Urine Appearance CLEAR CLEAR Urine pH 5.0 4.5-7.5 Urine Specific [place] 1.011 1.000-1.030 Urine Protein NEG NEG Urine Glucose (UA) NEG NEG Urine Ketones NEG NEG Urine Occult Blood NEG NEG Urine Nitrite NEG NEG Urine Bilirubin NEG NEG Urine Urobilinogen NEG NEG Urine Leukocyte Esterase MODERATE NEG Urine WBC (Auto) 5-10 0-5 /hpf Urine RBC (Auto) 0-4 0-4 /hpf Urine Hyaline Casts (Auto) 1-5 0-5 /lpf Urine Epithelial Cells (Auto) >30 0-5 /lpf Urine Bacteria (Auto) NEG NEG Urine Osmolality 188 500-800 mOms/kg Urine Random Sodium 9 mEq/L White Blood Count 7.09 4.8-10.8 K/uL Red Blood Count 3.36 4.2-5.4 M/uL Hemoglobin 9.7 12.0-16.0 g/dL Hematocrit 30.3 37-47 % Mean Corpuscular Volume 90.2 80-100 fL Mean Corpuscular Hemoglobin 28.9 25-34 pg Mean Corpuscular Hemoglobin Concent 32.0 32-36 g/dl RDW Standard Deviation 45.8 36.4-46.3 fL RDW Coefficient of Variation 13.9 11.5-14.5 % Platelet Count 209 130-400 K/uL Mean Platelet Volume 9.1 7.4-10.4 fL Prothrombin Time 20.4 9.0-12.0 SECONDS Prothromb Time International Ratio 2.0 0.9-1.1 Sodium Level 131 136-145 mmol/L Potassium Level 4.8 3.5-5.1 mmol/L Chloride Level 98 98-107 mmol/L Carbon Dioxide Level 30 21-32 mmol/L Anion Gap 3.0 3-11 mmol/L Blood Urea Nitrogen 17 7-18 mg/dl Creatinine 0.89 0.60-1.20 mg/dl Est Creatinine Clear Calc Drug Dose 45.0 ml/min Estimated GFR () 66.6 Estimated GFR (Non- 57.5 BUN/Creatinine Ratio 18.9 10-20 Random Glucose 92 70-99 mg/dl Calcium Level 9.0 8.5-10.1 mg/dl Total Bilirubin 0.3 0.2-1 mg/dl Aspartate Amino Transf (AST/SGOT) 22 15-37 U/L Alanine Aminotransferase (ALT/SGPT) 21 12-78 U/L Alkaline Phosphatase 41 45-117 U/L Total Protein 6.1 6.4-8.2 gm/dl Albumin 2.9 3.4-5.0 gm/dl Globulin 3.2 2.5-4.0 gm/dl Albumin/Globulin Ratio 0.9 0.9-2
[2018-02-09] MEDS: WARFARIN SOD 2 MG TAB PO SCH (16:32)
[2018-02-09] MEDS: DIGOXIN 0.125 MG TAB PO SCH (16:33)
[2018-02-09] MEDS: HYDROmorphone INJ 2 MG/ML SYR/VIAL IV SCH ×2 (16:45→22:45)
[2018-02-09] MEDS ORDERED: HYDROmorphone INJ 2 MG/ML SYR/VIAL IV ONE (18:30)
[2018-02-09] MEDS: ATORVASTATIN 20 MG TAB PO SCH (21:15)
[2018-02-09] MEDS: AMITRIPTYLINE HCL 10 MG TAB PO SCH (21:17)
[2018-02-09] MEDS: PRIMIDONE 50 MG TAB PO SCH (21:18)
[2018-02-10] MEDS ORDERED: TRAMADOL HCL 50 MG TAB PO PRN (02:30)
[2018-02-10] MEDS: HYDROmorphone INJ 2 MG/ML SYR/VIAL IV SCH ×2 (04:45→09:06)
[2018-02-10] MEDS: TRAMADOL HCL 50 MG TAB PO SCH ×3 (06:20→21:16)
[2018-02-10 07:17] VITALS: BP 102/64; PULSE 67; TEMP 36.8; O2SAT 98
[2018-02-10 08:00] VITALS: O2SAT 98
[2018-02-10] MEDS: POLYETHYLENE (MIRALAX) 17 GM PACK PO PRN (08:23)
[2018-02-10] MEDS: TIOTROPIUM BROMIDE 5 PUFF/90 MCG INH INH SCH (08:24)
[2018-02-10] MEDS: BUDESONIDE/FORMOTEROL FUMARATE 160/4.5 60 PUFFS/INHALER INH SCH ×2 (08:24→21:15)
[2018-02-10] MEDS: SENNA 8.6 MG TAB PO SCH (08:25)
[2018-02-10] MEDS: POTASSIUM CHLORIDE 10 MEQ TABCR PO SCH (08:25)
[2018-02-10] MEDS: PANTOprazole SOD 40 MG TAB PO SCH ×2 (08:26→21:18)
[2018-02-10] MEDS: FLUOXETINE HCL 10 MG CAP PO SCH (08:26)
[2018-02-10] MEDS: DOCUSATE SODIUM 100 MG CAP PO SCH ×3 (08:26→21:17)
[2018-02-10] MEDS: FUROSEMIDE 40 MG TAB PO SCH (08:26)
[2018-02-10] MEDS: ASPIRIN 81 MG ECTAB PO SCH (08:27)
[2018-02-10] MEDS: CHOLECALCIFEROL 1000 INTER.UNIT TAB PO SCH (08:27)
[2018-02-10] MEDS: LIDODERM (LIDOCAINE) PATCH 5% TD SCH (08:27)
[2018-02-10] MEDS: NITROGLYCERIN 0.2 MG/HR PATCH TD SCH (08:29)
[2018-02-10] MEDS ORDERED: MAGNESIUM CITRATE 296 ML/BTL PO ONE (11:15)
[2018-02-10] MEDS ORDERED: SOD PHOSPHATE/SOD BIPHOSPHATE ENEMA 132 ML BTL PR PRN (11:15)
[2018-02-10] MEDS ORDERED: BUPRENORPHINE 5 MCG/HR TDSY TD SCH (11:30)
--- NOTE | 2018-02-10 11:47 | Pain Management Consultation ---
Pain Management Consultation Date of Consultation Feb 10, 2018. Reason for Consultation rib fx Pain Location 1 - 2 - History 87-year-old female who on 02/06/2018 was trying to make her bed and reports lost her balance and fell hitting back of head on her dresser. She denies any loss of consciousness but was unable to get up for approximately 2 hours. She then presented to the [facility] emergency room and was diagnosed with a left seventh and ninth rib fractures. She reports her pain is between 0 out of 10 at rest and up to 10 out of 10 with movement coughing or deep breathing. She reports that pain is left-sided and has a radicular component wrapping around the front of her chest. Her daughter is in the room during examination and reports that the mother becomes very sedated with IV hydromorphone and has significant concerns about her pain level of pain control and ability to ambulate at a [facility] facility. She has not had a bowel movement for a number of days. At home she utilizes tramadol 75 mg p.o. 3 times daily for chronic hip and knee pain. 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 (16) Chronic back pain (17) Atrial fibrillation (18) History of urinary calculi (19) Tremor, essential (20) GERD (gastroesophageal reflux disease) (21) Warfarin anticoagulation (22) History of pulmonary embolism (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, postinflammatory (24) Dyslipidemia (25) Diastolic congestive heart failure (26) Chronic respiratory failure (27) History of TIA (transient ischemic attack) (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 (29) Osteoporosis (30) Coronary artery disease (31) History of DVT (deep vein thrombosis) (32) Subtherapeutic international normalized ratio (INR) (33) Chest pain (34) Rib fractures (35) Status post cardiac catheterization (36) Status post hysterectomy (37) Status post cataract extraction Family History Lung disease FATHER Melanoma BROTHER Stroke BROTHER Social / Work History Smokeless Tobacco Use: No Alcohol Use: none Marital Status: Housing Status: lives with family Occupation: retired Allergies Coded Allergies: Levofloxacin (Verified Allergy, Mild, ITCHING AND REDNESS AT IV SITE, 02/07) Adhesives (Verified Allergy, Unknown, `, 02/06/18) Fluticasone (Verified Allergy, Unknown, UNKNOWN, 02/06/18) Sulfa Antibiotics (Verified Allergy, Unknown, Unknown, 02/07/18) Albuterol (Verified Adverse Reaction, Mild, TACHYCARDIA, 02/06/18) Medications Current Inpatient Medications Medications (Trade) Dose Ordered Sig/Kiel Route Start Time Stop Time Status Last Admin Dose Admin Ondansetron HCl (Zofran Inj) 4 mg Q6H PRN IV 02/06/18 18:30 03/08/18 18:29 Nitroglycerin (Nitrostat Tab) 0.4 mg UD PRN SL 02/06/18 18:30 03/08/18 18:29 Polyethylene (Miralax Powder Packet) 17 gm DAILY PRN PO 02/06/18 18:30 03/08/18 18:29 02/10/18 08:23 17 GM Amitriptyline HCl (Elavil Tab) 20 mg HS PO 02/06/18 21:00 03/08/18 20:59 02/09/18 21:17 20 MG Aspirin (Ecotrin Tab) 81 mg QAM PO 02/07/18 09:00 03/09/18 08:59 02/10/18 08:27 81 MG Atorvastatin Calcium (Lipitor Tab) 20 mg HS PO 02/06/18 21:00 03/08/18 20:59 02/09/18 21:15 20 MG Budesonide/ Formoterol Fumarate (Symbicort 160/ 4.5 Inh) 2 puffs BID INH 02/06/18 21:00 03/08/18 20:59 02/10/18 08:24 2 PUFFS Cholecalciferol (Vitamin D Tab) 1,000 inter.unit DAILY PO 02/07/18 09:00 03/09/18 08:59 02/10/18 08:27 1,000 INTER.UNIT Digoxin (Lanoxin Tab) 0.125 mg MoTuWeThFrSa@1600 PO 02/07/18 16:00 03/09/18 15:59 02/09/18 16:33 0.125 MG Docusate Sodium (coLACE CAP) 100 mg BID PO 02/06/18 21:00 03/08/18 20:59 02/10/18 08:26 100 MG Fluoxetine HCl (Prozac Cap) 10 mg DAILY PO 02/07/18 09:00 03/09/18 08:59 02/10/18 08:26 10 MG Furosemide (Lasix Tab) 40 mg MoTuWeThFr@0900 PO 02/07/18 09:00 03/09/18 08:59 02/10/18 08:26 40 MG Nitroglycerin (Nitro-Dur 0.2 Mg/Hr Patch) 1 patch DAILY TD 02/07/18 09:00 03/09/18 08:59 02/10/18 08:29 1 PATCH Potassium Chloride (Klor-Con M10) 10 meq MoTuWeThFr@0900 PO 02/07/18 09:00 03/09/18 08:59 02/10/18 08:25 10 MEQ Primidone (Mysoline Tab) 100 mg QPM PO 02/06/18 21:00 03/08/18 20:59 02/09/18 21:18 100 MG Tiotropium [place] (Spiriva Handihaler Inhaler) 1 puff DAILY INH 02/07/18 09:00 03/09/18 08:59 02/10/18 08:24 1 PUFF Warfarin Sodium (Coumadin Tab) 2 mg DAILY@1600 PO 02/06/18 21:00 03/08/18 20:59 02/09/18 16:32 2 MG Pantoprazole Sodium (Protonix Tab) 40 mg BID PO 02/06/18 21:00 03/08/18 20:59 02/10/18 08:26 40 MG Levalbuterol (Xopenex 0.31MG/ 3ML Neb) 0.31 mg Q4R PRN INH 02/06/18 19:00 03/08/18 18:59 02/09/18 21:54 0.31 MG Miscellaneous (Iv Fluids Completed) 1 ea PRN PRN N/A 02/06/18 19:15 02/06/19 19:14 Miscellaneous (Remove Nitro-Dur Patch) 1 ea DAILY@2100 N/A 02/06/18 23:00 03/08/18 22:59 02/09/18 21:13 1 EA Prednisone (PredniSONE TAB) 5 mg DAILY PO 02/08/18 09:00 03/10/18 08:59 02/10/18 08:26 5 MG Lidocaine (Lidoderm Patch 5%) 1 patch QAM TD 02/09/18 09:00 03/11/18 08:59 02/10/18 08:27 1 PATCH Miscellaneous (Remove Lidoderm Patch) 1 ea DAILY@21 N/A 02/08/18 21:00 03/10/18 20:59 02/09/18 21:13 1 EA Senna (Senokot Tab) 17.2 mg QAM PO 02/10/18 09:00 03/12/18 08:59 02/10/18 08:25 17.2 MG Hydromorphone HCl (Dilaudid Inj) 0.5 mg Q8H IV 02/10/18 16:45 02/21/18 08:59 Tramadol HCl (Ultram Tab) 100 mg Q8 PO 02/10/18 14:00 03/08/18 21:59 Acetaminophen/ Hydrocodone Bitart ([place] 5/325 Tab) 1 tab Q6H PRN PO 02/10/18 11:00 02/24/18 10:59 Buprenorphine HCl (Butrans Patch) 5 mcg Q7D@1130 TD 02/10/18 11:30 03/12/18 11:29 Sodium Biphosphate/ Sodium Phosphate (Fleet Enema) 132 ml DAILY PRN CO 02/10/18 11:15 03/12/18 11:14 Review of Systems 10 pt ROS was negative aside from HPI Physical Exam Height & Weight: Height 5 feet, 6.00 inches. Weight 77.300 (Kilograms) 170 (Pounds) Last Vital Signs Documentation Date Time Temp Pulse Resp B/P (MAP) Pulse Ox O2 Delivery O2 Flow Rate FiO2 02/10/18 08:00 98 Nasal Cannula 2.0 02/10/18 07:17 36.8 67 20 102/64 (77) Exam: Constitutional: Well-developed, well-nourished, normal weight she is covered by her daughter on today's examination Psych: Awake, alert, but sedate having just been given IV hydromorphone Eyes: Pupils are equally round and reactive to light with normal size pupils, eyelids appear normal Ear, nose, mouth, and throat: Moist nasal and oral membranes, lips and tongues appear normal, no external ear abnormalities are noted Neck: The trachea is midline without deviation and no thyromegaly is noted Respiratory: Normal respiratory effort without distress, no audible wheezes or rhonchi. She has exquisite tenderness over her left seventh eighth and ninth ribs. She requires splinting and has visible wincing during coughing. CV: Normal S1 and S2, carotid upstroke is within normal limits Chest: Deferred GI/abdomen: Mildly tender without guarding, no masses noted. Abdomen appears distended Musculoskeletal: Head is normocephalic and atraumatic, gait is not observed Cervical: Lordotic curve: Decreased Range of motion is normal with extension, flexion, side- bending, rotation Tenderness: Non-tender over the axial midline Facet provocation: Negative bilaterally Step-off injuries: None Thoracic: Kyphotic curve: Slightly increased Range of motion is normal with extension, flexion, side- bending, rotation Tenderness: Moderately tender over the axial midline Facet provocation: Negative bilaterally Scoliosis present: None Step-off injuries: None Myofascial spasm: No appreciable spasm. No discrete trigger points noted Lumbar: Lordotic curve: Normal Range of motion is normal with extension, flexion, side- bending, rotation Tenderness: Nontender over the axial midline Facet provocation: Negative bilaterally Straight leg raise: Negative bilaterally Step-off injuries: None Skin: Multiple abrasions are noted over her left knee, hand. Neuro: No nystagmus noted, the tongue is midline, the patient is able to rotate their head bilaterally : Deferred Laboratory Laboratory Results (Last CBC): 02/09/18 05:28 Imaging MRI Findings EKG this admission reveals a QTc of 362msec Other Findings Patient: RIC YU Address1: [address] [place] [address] Rec: [id number] Address2: Acct ID: [id number] [facility] Zip: [place] [address] Date: 1930 Sex: F Room/Bed: N285-2 Ref Phy: Joan Cole D.O. SC: C.MED Att Phy: Guido Robles M.D. Report #: [id number] Kadi Phy: Joan Cole D.O. Test: [facility] Admit Phy: Karen Daniel DO Broadcast Engineer: MICHELLE Interpreting Phy: Eddi Rivas M.D. Diagnosis: AMBULATORY DYSFUNCTION,RIB FRACTURES Ordering Phy: Guido Robles M.D. Service Date: 02/09/18 Admit Date: 02/07/1804/18/18 MNE: [id number] CONF: DICTATED BY: Eddi Rivas M.D.]] CC: Joan Cole D.O., Gary K., M.D. Endcc: [~ rep ct add3]] L RIBS UNILATERAL WITH PA CHEST CLINICAL HISTORY: left rib fractures, persistent pain COMPARISON STUDY: 02/06/2018 FINDINGS: The erect chest reveals cardiac enlargement. There are small bilateral pleural effusions. There is no focal pulmonary consolidation. There are subtle fractures of the left seventh and ninth ribs. IMPRESSION: Subtle fractures of the left seventh and ninth ribs. No evidence of pneumothorax. Past Records Previous Records: none available for review Opioid Risk Assessment Risk assessment performed, no issues identified Assessment 1. Left 7th and 9th rib fx, non-displaced with acute pain 2. intolerance to narcotics secondary to sedation/constipation Recommendations 1. Will diminish hydromorphone dosing to 0.5mg to minimize sedation, use as backup med to PO narcotics 2. Will initiate butrans 5mcg q7d, will need a repeat 12 lead EKG in 30days to ensure QTc does not lengthen. Will need to utilize norco until butrans becomes effective (approximately 5days onset time). 3. Recommend utilization of [place] 5/325 mg 1 p.o. every 6 as needed pain until Butrans becomes effective. 4. Recommend tramadol 100 mg p.o. every 8 to diminish pain. Would closely monitor for serotonin syndrome given utilization of SSRI in addition to tramadol , but patient has previously been on tramadol 75 mg p.o. 3 times daily with out difficulty and has tolerated that regimen while at home. 5. Recommend continued utilization of Lidoderm patch and bowel regimen. Will order dose of magnesium citrate but consider Fleet enema should this fail to produce bowel movement. 6. The patient is not a candidate for interventional pain procedures given her therapeutic dose of Coumadin. Would consider for intercostal nerve blocks in the future should she fail medical regimen and INR was less than 1.3. 7. Thank you for this consultation. I be happy to see the patient as an outpatient and follow-up if need be.
[2018-02-10] MEDS ORDERED: MAGNESIUM CITRATE 296 ML/BTL PO SCH (12:00)
[2018-02-10 15:48] VITALS: BP 101/58; PULSE 61; TEMP 36.9; O2SAT 98
[2018-02-10] MEDS: WARFARIN SOD 2 MG TAB PO SCH (17:18)
[2018-02-10] MEDS: DIGOXIN 0.125 MG TAB PO SCH (17:20)
[2018-02-10] MEDS: HYDROCODONE/ACETAMIN 5/325MG TAB PO PRN ×2 (17:25→23:38)
[2018-02-10] MEDS: HYDROmorphone INJ 0.5 MG/0.5 ML SYR IV SCH (17:25)
--- NOTE | 2018-02-10 19:10 | Progress Note ---
Internal Med Progress Note Date of Service: Feb 10, 2018. Provider Documentation: Subjective: Patient was having pain this AM and the pain management doctor was requested to help with making medication changes. Patient seen again later and pain is better controlled Physical Exam General: speaking in full sentences Heart rate: bradycardic Lungs: CTABL, no wheezing Chest: left rib cage tenderness Abdomen: soft, nontender, + bowel sounds Extremities: no edema ASSESSMENT & PLAN: LEFT NINTH AND 10TH RIB FRACTURES S/P MECHANICAL FALL/AMBULATORY DYSFUNCTION -injury from falling down prior to admission: left ninth and tenth rib fracture on admission CXR / rib X ray -Negative CT head, Negative bilateral femur x-rays / pelvis x-ray/ L shoulder x- ray for fracture. -continue incentive spirometry -repeat rib X ray 02/09/18: Subtle fractures of the left seventh and ninth ribs. No evidence of pneumothorax. -changes in pain regimen made by pain management doctor 02/10/18: diminish hydromorphone dosing to 0.5mg to minimize sedation, use as backup med to PO narcotics initiate butrans 5mcg q7d, will need a repeat 12 lead EKG in 30days to ensure QTc does not lengthen. Will need to utilize norco until butrans becomes effective (approximately 5days onset time). utilization of [place] 5/325 mg 1 p.o. every 6 as needed pain until Butrans becomes effective. tramadol 100 mg p.o. every 8 to diminish pain. Would closely monitor for serotonin syndrome given utilization of SSRI in addition to tramadol, but patient has previously been on tramadol 75 mg p.o. 3 times daily with out difficulty and has tolerated that regimen while at home. continued utilization of Lidoderm patch Constipation -KUB 02/09/18 Nonobstructive bowel pattern. No evidence for fecal impaction. Degenerative change of the osseous structures. No secondary signs of free air. -continue Miralax, senna, colace, enema as needed; magnesium citrate ordered by pain management doctor Empirically treated for potential urinary tract infection -Positive urinalysis on 02/07/18 and patient was empirically started on ceftriaxone for urinary tract infection, the urine culture had high counts of 3 organisms and recommendations is to repeat the urine study, ceftriaxone continued until 02/08/18 as the repeat urinalysis shows no bacteria Hyponatremia on 02/08/18 with serum sodium 127 to 138 -possibly from pain vs Lasix vs thyroid dysfunction -Serum sodium was 127 and repeat 128. serum osmolality 271 indicates a hypotonic hyponatremia. urine osmolality 188 and urine sodium 9 TSH is 0.225 which is low but T4 is normal 4.6, free T4 0.94 normal, and total T3 0.63 somewhat low normal, recommend Thyroid function tests to be repeated in 3 weks -Serum sodium 131 on 02/09/18 without intervention, continue to trend electrolytes Blood pressure controlled today -continue lasix COPD, OXYGEN AND STEROID DEPENDENT -prednisone 5 mg daily -continue nasal cannula -continue Spiriva, Symbicort daily and levalbuterol prn CHRONIC A-FIB ON COUMADIN -digoxin level added on this admission, continue digoxin -subtherapeutic INR 1.6 to 1.4 on admission days, because patient has history of reported DVTs and Pulmonary embolism, patient was started on full dose Lovenox while receiving Coumadin and successfully bridged to therapeutic INR, on Coumadin only currently CHRONIC ANEMIA Hgb downtrending 11.9 to 10.9 to 9.8 to 9.7, decrease may be from hematoma from injury and from blood draws HX CAD/CHRONIC DIASTOLIC HF -continue ASA, nitro patch, statin Osteoarthritis Chronic hip and knee pain. Uses tramadol, follows with rheumatology for joint injections x 3 months. -continue pain medication management and prednisone HLD -continue statin GERD -continue PPI DVT Prophylaxis: coumadin Code Status: DNR/DNI Family [phone] Disposition: possible discharge to [facility] when pain better controlled, possibly tomorrow Vital Signs: Date Time Temp Pulse Resp B/P (MAP) Pulse Ox O2 Delivery O2 Flow Rate FiO2 02/10/18 17:20 72 02/10/18 15:48 36.9 61 20 101/58 (72) 98 Nasal Cannula 2.0 02/10/18 08:00 98 Nasal Cannula 2.0 02/10/18 07:17 36.8 67 20 102/64 (77) 98 Nasal Cannula 2.0 02/10/18 00:00 Nasal Cannula 2.0 02/09/18 23:11 36.8 69 18 118/68 (85) 94 Room Air 02/09/18 21:54 79 18 90 Room Air 02/09/18 19:27 36.7 67 18 132/84 (100) 96 Nasal Cannula 2.0 Lab Results: Results Past 24 Hours Test 02/10/18 05:43 Range/Units Prothrombin Time 21.1 9.0-12.0 SECONDS Prothromb Time International Ratio 2.0 0.9-1.1
[2018-02-10] MEDS: ATORVASTATIN 20 MG TAB PO SCH (21:15)
[2018-02-10] MEDS: AMITRIPTYLINE HCL 10 MG TAB PO SCH (21:15)
[2018-02-10] MEDS: PRIMIDONE 50 MG TAB PO SCH (21:17)
[2018-02-11 00:30] VITALS: BP 113/62; PULSE 67; TEMP 36.6; O2SAT 97
[2018-02-11] MEDS: HYDROCODONE/ACETAMIN 5/325MG TAB PO PRN ×4 (00:37→23:26)
[2018-02-11] MEDS: HYDROmorphone INJ 0.5 MG/0.5 ML SYR IV SCH ×3 (00:39→15:59)
[2018-02-11 05:36] VITALS: BP 120/66; PULSE 84; TEMP 36.8
[2018-02-11] MEDS: TRAMADOL HCL 50 MG TAB PO SCH ×3 (06:22→21:29)
--- NOTE | 2018-02-11 06:43 | Progress Note ---
Internal Med Progress Note Date of Service: Feb 11, 2018. Provider Documentation: Made aware by RN of "frankly bloody liquid BM"; "dripping" as per RN account. Vital signs within normal limits as per RN. Patient denies abdominal pain, chest pain, SOB. Intermittent episodes at home as per patient. AP Painless LGIB Possible diverticular bleed ro cdif (diverticulosis on review of past imaging studies) Check AM CBC, coags Hold ASA, Coumadin for now until above results known. Stool C. difficile Will relay to AM provider. Vital Signs: Date Time Temp Pulse Resp B/P (MAP) Pulse Ox O2 Delivery O2 Flow Rate FiO2 02/11/18 08:00 Nasal Cannula 2.0 02/11/18 07:34 36.9 76 18 106/61 (76) 91 1.0 02/11/18 05:36 36.8 84 16 120/66 (84) 02/11/18 00:30 36.6 67 20 113/62 (79) 97 Nasal Cannula 2.0 02/11/18 00:00 Nasal Cannula 2.0 02/10/18 17:20 72 02/10/18 16:30 Nasal Cannula 2.0 02/10/18 15:48 36.9 61 20 101/58 (72) 98 Nasal Cannula 2.0 Lab Results: Results Past 24 Hours Test 02/11/18 05:12 02/11/18 06:30 Range/Units Prothrombin Time 21.5 9.0-12.0 SECONDS Prothromb Time International Ratio 2.1 0.9-1.1 Sodium Level 134 136-145 mmol/L Potassium Level 4.4 3.5-5.1 mmol/L Chloride Level 98 98-107 mmol/L Carbon Dioxide Level 33 21-32 mmol/L Anion Gap 3.0 3-11 mmol/L Blood Urea Nitrogen 12 7-18 mg/dl Creatinine 0.83 0.60-1.20 mg/dl Est Creatinine Clear Calc Drug Dose 48.2 ml/min Estimated GFR () 72.5 Estimated GFR (Non- 62.5 BUN/Creatinine Ratio 15.1 10-20 Random Glucose 89 70-99 mg/dl Calcium Level 9.3 8.5-10.1 mg/dl Total Bilirubin 0.6 0.2-1 mg/dl Aspartate Amino Transf (AST/SGOT) 17 15-37 U/L Alanine Aminotransferase (ALT/SGPT) 20 12-78 U/L Alkaline Phosphatase 41 45-117 U/L Total Protein 6.4 6.4-8.2 gm/dl Albumin 3.0 3.4-5.0 gm/dl Globulin 3.4 2.5-4.0 gm/dl Albumin/Globulin Ratio 0.9 0.9-2 White Blood Count 7.18 4.8-10.8 K/uL Red Blood Count 3.44 4.2-5.4 M/uL Hemoglobin 10.0 12.0-16.0 g/dL Hematocrit 31.5 37-47 % Mean Corpuscular Volume 91.6 80-100 fL Mean Corpuscular Hemoglobin 29.1 25-34 pg Mean Corpuscular Hemoglobin Concent 31.7 32-36 g/dl Platelet Count 243 130-400 K/uL Mean Platelet Volume 9.4 7.4-10.4 fL Neutrophils (%) (Auto) 65.5 % Lymphocytes (%) (Auto) 20.5 % Monocytes (%) (Auto) 11.0 % Eosinophils (%) (Auto) 2.5 % Basophils (%) (Auto) 0.4 % Neutrophils # (Auto) 4.70 1.4-6.5 K/uL Lymphocytes # (Auto) 1.47 1.2-3.4 K/uL Monocytes # (Auto) 0.79 0.11-0.59 K/uL Eosinophils # (Auto) 0.18 0-0.5 K/uL Basophils # (Auto) 0.03 0-0.2 K/uL RDW Standard Deviation 46.8 36.4-46.3 fL RDW Coefficient of Variation 14.0 11.5-14.5 % Immature Granulocyte % (Auto) 0.1 % Immature Granulocyte # (Auto) 0.01 0.00-0.02 K/uL
[2018-02-11 06:44] LABS: INR 2.1 (0.9-1.1)
[2018-02-11 06:50] LABS: CALCIUM 9.3 mg/dl (8.5-10.1); CREATININE 0.83 mg/dl (0.60-1.20); POTASSIUM 4.4 mmol/L (3.5-5.1)
[2018-02-11 06:53] LABS: TOTAL PROTEIN 6.4 gm/dl (6.4-8.2)
[2018-02-11 07:15] LABS: BASO % 0.4 %; BASO ABS # 0.03 K/uL (0-0.2); EOS % 2.5 %; EOS ABS # 0.18 K/uL (0-0.5); HEMATOCRIT 31.5 % (37-47); IG# 0.01 K/uL (0.00-0.02); LYMPH % 20.5 %; LYMPH ABS # 1.47 K/uL (1.2-3.4); MEAN CELL VOLUME 91.6 fL (80-100); MEAN CORPUSCULAR HEMOGLOBIN 29.1 pg (25-34); MEAN CORPUSCULAR HGB CONC 31.7 g/dl (32-36); MEAN PLATELET VOLUME 9.4 fL (7.4-10.4); MONO ABS # 0.79 K/uL (0.11-0.59); NEUT % 65.5 %; PLATELET COUNT 243 K/uL (130-400); RED CELL DISTRIBUTION WIDTH SD 46.8 fL (36.4-46.3); WHITE BLOOD COUNT 7.18 K/uL (4.8-10.8)
[2018-02-11 07:34] VITALS: BP 106/61; PULSE 76; TEMP 36.9; O2SAT 91
[2018-02-11] MEDS: TIOTROPIUM BROMIDE 5 PUFF/90 MCG INH INH SCH (07:52)
[2018-02-11] MEDS: DOCUSATE SODIUM 100 MG CAP PO SCH ×3 (07:53→21:31)
[2018-02-11] MEDS: BUDESONIDE/FORMOTEROL FUMARATE 160/4.5 60 PUFFS/INHALER INH SCH ×2 (07:53→21:31)
[2018-02-11] MEDS: CHOLECALCIFEROL 1000 INTER.UNIT TAB PO SCH (07:54)
[2018-02-11] MEDS: PANTOprazole SOD 40 MG TAB PO SCH ×2 (07:54→21:30)
[2018-02-11] MEDS: SENNA 8.6 MG TAB PO SCH (07:55)
[2018-02-11] MEDS: FLUOXETINE HCL 10 MG CAP PO SCH (07:55)
[2018-02-11] MEDS: LIDODERM (LIDOCAINE) PATCH 5% TD SCH (07:56)
[2018-02-11] MEDS: NITROGLYCERIN 0.2 MG/HR PATCH TD SCH (07:58)
--- NOTE | 2018-02-11 12:10 | Progress Note ---
Internal Med Progress Note Date of Service: Feb 11, 2018. Provider Documentation: Subjective: As per the report of the night time hospitalist doctor, the patient had blood in stool. Day time hospitalist asked patient and her family at bedside what had happened and apparently the patient was able to make bowel movement finally after days of constipation and when she wiped, there was blood on wiping. May have been some blood in toilet as well. Patient and family member at bedside reports history of hemorrhoids and while patient is on coumadin they have not thought there was ever significant bleeding that warranted interventions such as a colonoscopy and because concern that patient is a surgical risk. They did not want referral for colonoscopy and the morning CBC showed stable hemoglobin. Otherwise, patient feels better today in regards to the rib pain. The patient's family expressed concern about the butrans patch on the heart. Patient denies any chest discomforts Physical Exam General: speaking in full sentences Heart rate: bradycardic Lungs: CTABL, no wheezing Chest: left rib cage without much tenderness on exam today Abdomen: soft, nontender, + bowel sounds Extremities: no edema ASSESSMENT & PLAN: LEFT NINTH AND 10TH RIB FRACTURES S/P MECHANICAL FALL/AMBULATORY DYSFUNCTION -injury from falling down prior to admission: left ninth and tenth rib fracture on admission CXR / rib X ray -Negative CT head, Negative bilateral femur x-rays / pelvis x-ray/ L shoulder x- ray for fracture. -continue incentive spirometry -repeat rib X ray 02/09/18: Subtle fractures of the left seventh and ninth ribs. No evidence of pneumothorax. -changes in pain regimen made by pain management doctor 02/10/18: diminish hydromorphone dosing to 0.5mg to minimize sedation, use as backup med to PO narcotics initiate butrans 5mcg q7d, will need a repeat 12 lead EKG in 30days to ensure QTc does not lengthen. Will need to utilize norco until butrans becomes effective (approximately 5days onset time). utilization of [place] 5/325 mg 1 p.o. every 6 as needed pain until Butrans becomes effective. tramadol 100 mg p.o. every 8 to diminish pain. Would closely monitor for serotonin syndrome given utilization of SSRI in addition to tramadol, but patient has previously been on tramadol 75 mg p.o. 3 times daily with out difficulty and has tolerated that regimen while at home. continued utilization of Lidoderm patch Constipation -KUB 02/09/18 Nonobstructive bowel pattern. No evidence for fecal impaction. Degenerative change of the osseous structures. No secondary signs of free air. -constipation has resolved on 02/11/18. patient had blood in stool secondary to history of hemorrhoids, CBC on 02/11/18 is stable Hgb of 10. repeat CBC pending -as of 02/11/18 morning, patient and family is declining colonoscopy when this was discussed as a potential intervention Empirically treated for potential urinary tract infection -Positive urinalysis on 02/07/18 and patient was empirically started on ceftriaxone for urinary tract infection, the urine culture had high counts of 3 organisms and recommendations is to repeat the urine study, ceftriaxone continued until 02/08/18 as the repeat urinalysis shows no bacteria Hyponatremia on 02/08/18 with serum sodium 127 to 128 -possibly from pain vs Lasix vs thyroid dysfunction -Serum sodium was 127 and repeat 128. serum osmolality 271 indicates a hypotonic hyponatremia. urine osmolality 188 and urine sodium 9 TSH is 0.225 which is low but T4 is normal 4.6, free T4 0.94 normal, and total T3 0.63 somewhat low normal, recommend Thyroid function tests to be repeated in 3 weks -Serum sodium 131 on 02/09/18 without intervention, serum sodium 134 on 02/11/18 Blood pressure controlled today -continue lasix COPD, OXYGEN AND STEROID DEPENDENT -prednisone 5 mg daily -continue nasal cannula -continue Spiriva, Symbicort daily and levalbuterol prn CHRONIC A-FIB ON COUMADIN -digoxin level added on this admission, continue digoxin -subtherapeutic INR 1.6 to 1.4 on admission days, because 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 following the CBC after reported blood on wiping after defecation on 02/11/18 HX CAD/CHRONIC DIASTOLIC HF -continue ASA, nitro patch, statin Osteoarthritis Chronic hip and knee pain. Uses tramadol, follows with rheumatology for joint injections x 3 months. -continue pain medication management and prednisone HLD -continue statin GERD -continue PPI DVT Prophylaxis: on coumadin Code Status: DNR/DNI Family [phone] Disposition: possible discharge to [facility] tomorrow when successive stable CBC, resume coumadin if CBC stable Vital Signs: Date Time Temp Pulse Resp B/P (MAP) Pulse Ox O2 Delivery O2 Flow Rate FiO2 02/11/18 08:00 Nasal Cannula 2.0 02/11/18 07:34 36.9 76 18 106/61 (76) 91 1.0 02/11/18 05:36 36.8 84 16 120/66 (84) 02/11/18 00:30 36.6 67 20 113/62 (79) 97 Nasal Cannula 2.0 02/11/18 00:00 Nasal Cannula 2.0 02/10/18 17:20 72 02/10/18 16:30 Nasal Cannula 2.0 02/10/18 15:48 36.9 61 20 101/58 (72) 98 Nasal Cannula 2.0 Lab Results: Results Past 24 Hours Test 02/11/18 05:12 02/11/18 06:30 Range/Units Prothrombin Time 21.5 9.0-12.0 SECONDS Prothromb Time International Ratio 2.1 0.9-1.1 Sodium Level 134 136-145 mmol/L Potassium Level 4.4 3.5-5.1 mmol/L Chloride Level 98 98-107 mmol/L Carbon Dioxide Level 33 21-32 mmol/L Anion Gap 3.0 3-11 mmol/L Blood Urea Nitrogen 12 7-18 mg/dl Creatinine 0.83 0.60-1.20 mg/dl Est Creatinine Clear Calc Drug Dose 48.2 ml/min Estimated GFR () 72.5 Estimated GFR (Non- 62.5 BUN/Creatinine Ratio 15.1 10-20 Random Glucose 89 70-99 mg/dl Calcium Level 9.3 8.5-10.1 mg/dl Total Bilirubin 0.6 0.2-1 mg/dl Aspartate Amino Transf (AST/SGOT) 17 15-37 U/L Alanine Aminotransferase (ALT/SGPT) 20 12-78 U/L Alkaline Phosphatase 41 45-117 U/L Total Protein 6.4 6.4-8.2 gm/dl Albumin 3.0 3.4-5.0 gm/dl Globulin 3.4 2.5-4.0 gm/dl Albumin/Globulin Ratio 0.9 0.9-2 White Blood Count 7.18 4.8-10.8 K/uL Red Blood Count 3.44 4.2-5.4 M/uL Hemoglobin 10.0 12.0-16.0 g/dL Hematocrit 31.5 37-47 % Mean Corpuscular Volume 91.6 80-100 fL Mean Corpuscular Hemoglobin 29.1 25-34 pg Mean Corpuscular Hemoglobin Concent 31.7 32-36 g/dl Platelet Count 243 130-400 K/uL Mean Platelet Volume 9.4 7.4-10.4 fL Neutrophils (%) (Auto) 65.5 % Lymphocytes (%) (Auto) 20.5 % Monocytes (%) (Auto) 11.0 % Eosinophils (%) (Auto) 2.5 % Basophils (%) (Auto) 0.4 % Neutrophils # (Auto) 4.70 1.4-6.5 K/uL Lymphocytes # (Auto) 1.47 1.2-3.4 K/uL Monocytes # (Auto) 0.79 0.11-0.59 K/uL Eosinophils # (Auto) 0.18 0-0.5 K/uL Basophils # (Auto) 0.03 0-0.2 K/uL RDW Standard Deviation 46.8 36.4-46.3 fL RDW Coefficient of Variation 14.0 11.5-14.5 % Immature Granulocyte % (Auto) 0.1 % Immature Granulocyte # (Auto) 0.01 0.00-0.02 K/uL
[2018-02-11 13:10] LABS: HEMATOCRIT 32.9 % (37-47); HEMOGLOBIN 10.2 g/dL (12.0-16.0); MEAN CELL VOLUME 92.4 fL (80-100); MEAN CORPUSCULAR HEMOGLOBIN 28.7 pg (25-34); PLATELET COUNT 244 K/uL (130-400); RED CELL DISTRIBUTION WIDTH CV 14.1 % (11.5-14.5); RED CELL DISTRIBUTION WIDTH SD 47.5 fL (36.4-46.3); WHITE BLOOD COUNT 9.46 K/uL (4.8-10.8)
[2018-02-11] MEDS: LEVALBUTEROL 0.31MG/3 ML VIAL INH PRN (14:23)
[2018-02-11 14:27] VITALS: PULSE 77; O2SAT 97
[2018-02-11] MEDS ORDERED: ANUSOL SUPP 1 EA PR PRN (14:45)
[2018-02-11 15:54] VITALS: BP 114/75; PULSE 69; TEMP 36.8; O2SAT 97
[2018-02-11] MEDS ORDERED: WARFARIN SOD 2 MG TAB PO SCH (16:00)
[2018-02-11] MEDS: DIGOXIN 0.125 MG TAB PO SCH (16:05)
[2018-02-11] MEDS: ATORVASTATIN 20 MG TAB PO SCH (21:30)
[2018-02-11] MEDS: AMITRIPTYLINE HCL 10 MG TAB PO SCH (21:30)
[2018-02-11] MEDS: PRIMIDONE 50 MG TAB PO SCH (21:31)
[2018-02-11 23:12] VITALS: BP 126/73; PULSE 77; TEMP 36.6; O2SAT 97
[2018-02-12] MEDS: HYDROmorphone INJ 0.5 MG/0.5 ML SYR IV SCH ×2 (00:45→08:45)
[2018-02-12 05:40] LABS: MEAN CELL VOLUME 91.7 fL (80-100); MEAN CORPUSCULAR HEMOGLOBIN 28.7 pg (25-34); MEAN CORPUSCULAR HGB CONC 31.3 g/dl (32-36); MEAN PLATELET VOLUME 9.1 fL (7.4-10.4); PLATELET COUNT 258 K/uL (130-400); RED CELL DISTRIBUTION WIDTH SD 46.6 fL (36.4-46.3)
[2018-02-12] MEDS: TRAMADOL HCL 50 MG TAB PO SCH (06:06)
[2018-02-12 06:08] LABS: CREATININE 0.85 mg/dl (0.60-1.20)
[2018-02-12 07:16] VITALS: BP 108/71; PULSE 66; TEMP 36.8; O2SAT 98
[2018-02-12] MEDS: BUDESONIDE/FORMOTEROL FUMARATE 160/4.5 60 PUFFS/INHALER INH SCH (08:57)
[2018-02-12] MEDS: PANTOprazole SOD 40 MG TAB PO SCH (08:57)
[2018-02-12] MEDS: LIDODERM (LIDOCAINE) PATCH 5% TD SCH (08:58)
[2018-02-12] MEDS: CHOLECALCIFEROL 1000 INTER.UNIT TAB PO SCH (08:58)
[2018-02-12] MEDS: NITROGLYCERIN 0.2 MG/HR PATCH TD SCH (08:58)
[2018-02-12] MEDS: FLUOXETINE HCL 10 MG CAP PO SCH (08:59)
[2018-02-12] MEDS: ASPIRIN 81 MG ECTAB PO SCH (09:00)
[2018-02-12] MEDS ORDERED: SENNA 8.6 MG TAB PO SCH (09:00)
[2018-02-12] MEDS: DOCUSATE SODIUM 100 MG CAP PO SCH (09:00)
[2018-02-12] MEDS: TIOTROPIUM BROMIDE 5 PUFF/90 MCG INH INH SCH (09:03)
[2018-02-12] MEDS ORDERED: HYDR-5688 PO ×2 (09:10→09:41)
[2018-02-12] MEDS ORDERED: ULT50X PO ×2 (09:10→09:41)
[2018-02-12] MEDS ORDERED: ANSS PR (09:10)
[2018-02-12] MEDS ORDERED: SENN-61 PO (09:10)
[2018-02-12] MEDS ORDERED: LDDP5 TD ×2 (09:10→09:41)
--- NOTE | 2018-02-12 09:36 | Progress Note ---
Internal Med Progress Note Date of Service: Feb 12, 2018. Provider Documentation: Subjective: Patient reports pain of the ribs is well controlled. Physical Exam General: speaking in full sentences Heart rate: bradycardic Lungs: CTABL, no wheezing Chest: left rib cage without much tenderness on exam Abdomen: soft, nontender, + bowel sounds Extremities: no edema ASSESSMENT & PLAN: Hospital Course and Discharge Plans LEFT NINTH AND 10TH RIB FRACTURES S/P MECHANICAL FALL/AMBULATORY DYSFUNCTION -injury from falling down prior to admission: left ninth and tenth rib fracture on admission CXR / rib X ray -Negative CT head, Negative bilateral femur x-rays / pelvis x-ray/ L shoulder x- ray for fracture. -repeat rib X ray 02/09/18: Subtle fractures of the left seventh and ninth ribs. No evidence of pneumothorax. -during hospital stay, patient's pain management has been difficult to manage and needed pain management evaluation on 02/10/18, patient had butrans patch started but was discontinued on 02/11/18 because family had concerns about potential QTC side effects in the future, pain was better controlled however with resumption of Lidocaine patch and pain management's recommended doses of Tramadol and [place]. Patient will be discharged on Lidocaine patch, Tramadol, and [place] -patient's narcotic requirements will likely decline with time and primary care doctor will need to make doing adjustments as needed -of note, pain management has commented that sertraline and tramadol can put patient as risk for serotonin syndrome and while this is less likely as per pain management assessment that patient has had high does of tramadol before, patient is now on higher tramadol doses Constipation -KUB 02/09/18 Nonobstructive bowel pattern. No evidence for fecal impaction. Degenerative change of the osseous structures. No secondary signs of free air. -Constipation resolved on 02/11/18 after multiple bowel regimens utilized. patient had blood in stool secondary to history of hemorrhoids, CBC stable -hemorrhoid suppositories have been attempted and patient to be discharged with hemorrhoid suppositories -have discussed with patient and family on this admission on risks and benefits of colonoscopy and they have declined colonoscopy evaluation as a potential intervention for other potential sources of the rectal bleed -patient to be discharged with senna to prevent narcotic induced constipation CHRONIC ANEMIA -Hgb stable after presumed hemorrhoid bleed HX CAD/CHRONIC DIASTOLIC HF -continue ASA, statin, nitro patch CHRONIC A-FIB ON COUMADIN -digoxin level added on this admission, continue digoxin -subtherapeutic INR 1.6 to 1.4 on admission days, because 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 serum osmolality 271 indicates a hypotonic hyponatremia. urine osmolality 188 and urine sodium 9 TSH is 0.225 which is low but T4 is normal 4.6, free T4 0.94 normal, and total T3 0.63 somewhat low normal, recommend Thyroid function tests to be repeated in 3 weeks -Serum sodium has normalized without intervention Empirically treated for potential urinary tract infection -Positive urinalysis on 02/07/18 and patient was empirically started on ceftriaxone for urinary tract infection, the urine culture had high counts of 3 organisms and recommendations of repeating the urine study, ceftriaxone continued up until 02/08/18 as the repeat urinalysis shows no bacteria COPD, OXYGEN AND STEROID DEPENDENT -prednisone 5 mg daily -continue nasal cannula -continue Spiriva, Symbicort daily and levalbuterol prn Osteoarthritis Chronic hip and knee pain. Uses tramadol, follows with rheumatology for joint injections x 3 months. -continue pain medication management and prednisone HLD -continue statin GERD -continue PPI DVT Prophylaxis: on coumadin Family [phone] Disposition: discharge to [facility] Patient will need to follow up with primary care doctor on further pain management adjustments, general health including cardiac health, thyroid health and Levothyroxine adjustments, and to follow with anticoagulation clinic for INR checks 02/17/2018 11:00 AM Joan Cole DO [facility] 02/23/2018 1:30 PM [facility] Vital Signs: Date Time Temp Pulse Resp B/P (MAP) Pulse Ox O2 Delivery O2 Flow Rate FiO2 02/12/18 08:00 Nasal Cannula 2.0 02/12/18 07:16 36.8 66 18 108/71 (83) 98 2.0 4/22/18 00:00 Nasal Cannula 2.0 02/11/18 23:12 36.6 77 20 126/73 (90) 97 Nasal Cannula 2.0 02/11/18 16:15 Nasal Cannula 2.0 02/11/18 16:05 70 02/11/18 15:54 36.8 69 20 114/75 (88) 97 Nasal Cannula 2.0 02/11/18 14:27 77 18 97 Nasal Cannula 2.0 Lab Results: Results Past 24 Hours Test 02/11/18 12:58 02/12/18 05:16 Range/Units White Blood Count 9.46 7.70 4.8-10.8 K/uL Red Blood Count 3.56 3.49 4.2-5.4 M/uL Hemoglobin 10.2 10.0 12.0-16.0 g/dL Hematocrit 32.9 32.0 37-47 % Mean Corpuscular Volume 92.4 91.7 80-100 fL Mean Corpuscular Hemoglobin 28.7 28.7 25-34 pg Mean Corpuscular Hemoglobin Concent 31.0 31.3 32-36 g/dl RDW Standard Deviation 47.5 46.6 36.4-46.3 fL RDW Coefficient of Variation 14.1 14.0 11.5-14.5 % Platelet Count 244 258 130-400 K/uL Mean Platelet Volume 9.0 9.1 7.4-10.4 fL Creatinine 0.85 0.60-1.20 mg/dl Est Creatinine Clear Calc Drug Dose 47.1 ml/min Estimated GFR () 70.4 Estimated GFR (Non- 60.7
--- NOTE | 2018-02-12 09:38 | Discharge Instructions ---
Discharge Instructions Date of Service Feb 12, 2018. Admission Reason for Admission: Ambulatory Dysfunction,Rib Fractures Discharge Discharge Diagnosis / Problem: LEFT 9th AND 10TH RIB FRACTURES S/P MECHANICAL FALL/AMBULATORY DYSFUNCTION Discharge Goals Goal(s): Decrease discomfort, Improve function, Increase independence, Improve disease control Activity Recommendations Activity Limitations: per Instructions/Follow-up section Shower/Bathe: no limitations . Instructions / Follow-Up Instructions / Follow-Up Hospital Course and Discharge Plans LEFT NINTH AND 10TH RIB FRACTURES S/P MECHANICAL FALL/AMBULATORY DYSFUNCTION -injury from falling down prior to admission: left ninth and tenth rib fracture on admission CXR / rib X ray -Negative CT head, Negative bilateral femur x-rays / pelvis x-ray/ L shoulder x- ray for fracture. -repeat rib X ray 02/09/18: Subtle fractures of the left seventh and ninth ribs. No evidence of pneumothorax. -during hospital stay, patient's pain management has been difficult to manage and needed pain management evaluation on 02/10/18, patient had butrans patch started but was discontinued on 02/11/18 because family had concerns about potential QTC side effects in the future, pain was better controlled however with resumption of Lidocaine patch and pain management's recommended doses of Tramadol and [place]. Patient will be discharged on Lidocaine patch, Tramadol, and [place] -patient's narcotic requirements will likely decline with time and primary care doctor will need to make doing adjustments as needed -of note, pain management has commented that sertraline and tramadol can put patient as risk for serotonin syndrome and while this is less likely as per pain management assessment that patient has had high does of tramadol before, patient is now on higher tramadol doses Constipation -KUB 02/09/18 Nonobstructive bowel pattern. No evidence for fecal impaction. Degenerative change of the osseous structures. No secondary signs of free air. -Constipation resolved on 02/11/18 after multiple bowel regimens utilized. patient had blood in stool secondary to history of hemorrhoids, CBC stable -hemorrhoid suppositories have been attempted and patient to be discharged with hemorrhoid suppositories -have discussed with patient and family on this admission on risks and benefits of colonoscopy and they have declined colonoscopy evaluation as a potential intervention for other potential sources of the rectal bleed -patient to be discharged with senna to prevent narcotic induced constipation CHRONIC ANEMIA -Hgb stable after presumed hemorrhoid bleed HX CAD/CHRONIC DIASTOLIC HF -continue ASA, statin, nitro patch CHRONIC A-FIB ON COUMADIN -digoxin level added on this admission, continue digoxin -subtherapeutic INR 1.6 to 1.4 on admission days, because 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 serum osmolality 271 indicates a hypotonic hyponatremia. urine osmolality 188 and urine sodium 9 TSH is 0.225 which is low but T4 is normal 4.6, free T4 0.94 normal, and total T3 0.63 somewhat low normal, recommend Thyroid function tests to be repeated in 3 weeks -Serum sodium has normalized without intervention Empirically treated for potential urinary tract infection -Positive urinalysis on 02/07/18 and patient was empirically started on ceftriaxone for urinary tract infection, the urine culture had high counts of 3 organisms and recommendations of repeating the urine study, ceftriaxone continued up until 02/08/18 as the repeat urinalysis shows no bacteria COPD, OXYGEN AND STEROID DEPENDENT -prednisone 5 mg daily -continue nasal cannula -continue Spiriva, Symbicort daily and levalbuterol prn Osteoarthritis Chronic hip and knee pain. Uses tramadol, follows with rheumatology for joint injections x 3 months. -continue pain medication management and prednisone HLD -continue statin GERD -continue PPI DVT Prophylaxis: on coumadin Family [phone] Disposition: discharge to [facility] Patient will need to follow up with primary care doctor on further pain management adjustments, general health including cardiac health, thyroid health and Levothyroxine adjustments, and to follow with anticoagulation clinic for INR checks 02/17/2018 11:00 AM Joan Cole DO [facility] 02/23/2018 1:30 PM [facility] [place] [facility] Diet Patient's current hospital diet: AHA Diet (Heart Healthy) Discharge Diet Recommended Diet: AHA Diet (Heart Healthy) Pending Studies Studies pending at discharge: no Laboratory Results 02/12/18 05:16 02/11/18 05:12 02/12/18 05:16 Test 02/06/18 14:28 02/06/18 19:24 02/07/18 04:27 02/08/18 07:39 Activated Partial Thromboplast Time 27.9 SECONDS (21.0-31.0) Partial Thromboplastin Ratio 1.1 Total Creatine Kinase 153 U/L (26-192) Troponin I 0.026 ng/ml (0-0.045) Digoxin Level 0.8 ng/ml (0.8-2.0) Erythrocyte Sedimentation Rate 34 mm/hr (0-21) C-Reactive Protein 8.17 mg/dl (0-0.29) Osmolality 271 mOsm/kg (280-300) Thyroid Stimulating Hormone (TSH) 0.225 uIu/ml (0.300-4.500) Free Thyroxine 0.97 ng/dl (0.80-1.60) Thyroxine (T4) 4.6 mcg/dl (4.5-10.9) Total Triiodothyronine 0.63 ng/ml (0.60-1.81) Test 02/08/18 18:30 02/11/18 05:12 02/11/18 06:30 02/12/18 05:16 Urine Color YELLOW Urine Appearance CLEAR (CLEAR) Urine pH 5.0 (4.5-7.5) Urine Specific [place] 1.011 (1.000-1.030) Urine Protein NEG (NEG) Urine Glucose (UA) NEG (NEG) Urine Ketones NEG (NEG) Urine Occult Blood NEG (NEG) Urine Nitrite NEG (NEG) Urine Bilirubin NEG (NEG) Urine Urobilinogen NEG (NEG) Urine Leukocyte Esterase MODERATE (NEG) Urine WBC (Auto) 5-10 /hpf (0-5) Urine RBC (Auto) 0-4 /hpf (0-4) Urine Hyaline Casts (Auto) 1-5 /lpf (0-5) Urine Epithelial Cells (Auto) >30 /lpf (0-5) Urine Bacteria (Auto) NEG (NEG) Urine Osmolality 188 mOms/kg (500-800) Urine Random Sodium 9 mEq/L Prothrombin Time 21.5 SECONDS (9.0-12.0) Prothromb Time International Ratio 2.1 (0.9-1.1) Anion Gap 3.0 mmol/L (3-11) BUN/Creatinine Ratio 15.1 (10-20) Calcium Level 9.3 mg/dl (8.5-10.1) Total Bilirubin 0.6 mg/dl (0.2-1) Aspartate Amino Transf (AST/SGOT) 17 U/L (15-37) Alanine Aminotransferase (ALT/SGPT) 20 U/L (12-78) Alkaline Phosphatase 41 U/L (45-117) Total Protein 6.4 gm/dl (6.4-8.2) Albumin 3.0 gm/dl (3.4-5.0) Globulin 3.4 gm/dl (2.5-4.0) Albumin/Globulin Ratio 0.9 (0.9-2) Immature Granulocyte % (Auto) 0.1 % White Blood Count 7.18 K/uL (4.8-10.8) Red Blood Count 3.44 M/uL (4.2-5.4) 3.49 M/uL (4.2-5.4) Hemoglobin 10.0 g/dL (12.0-16.0) Hematocrit 31.5 % (37-47) Mean Corpuscular Volume 91.6 fL (80-100) 91.7 fL (80-100) Mean Corpuscular Hemoglobin 29.1 pg (25-34) 28.7 pg (25-34) Mean Corpuscular Hemoglobin Concent 31.7 g/dl (32-36) 31.3 g/dl (32-36) Platelet Count 243 K/uL (130-400) Mean Platelet Volume 9.4 fL (7.4-10.4) 9.1 fL (7.4-10.4) Neutrophils (%) (Auto) 65.5 % Lymphocytes (%) (Auto) 20.5 % Monocytes (%) (Auto) 11.0 % Eosinophils (%) (Auto) 2.5 % Basophils (%) (Auto) 0.4 % Neutrophils # (Auto) 4.70 K/uL (1.4-6.5) Lymphocytes # (Auto) 1.47 K/uL (1.2-3.4) Monocytes # (Auto) 0.79 K/uL (0.11-0.59) Eosinophils # (Auto) 0.18 K/uL (0-0.5) Basophils # (Auto) 0.03 K/uL (0-0.2) Immature Granulocyte # (Auto) 0.01 K/uL (0.00-0.02) RDW Standard Deviation 46.6 fL (36.4-46.3) RDW Coefficient of Variation 14.0 % (11.5-14.5) Est Creatinine Clear Calc Drug Dose 47.1 ml/min Estimated GFR () 70.4 Estimated GFR (Non- 60.7 Date/Time Source Procedure Growth Status 02/07/18 06:10 Urine , Clean Catch Urine Culture - Final THREE TYPES OF ORGANISMS PRESENT, ALL... Complete Lipid Panel Test 12/23/17 06:02 Range/Units Triglycerides Level 135 0-150 mg/dl Cholesterol Level 122 0-200 mg/dl HDL Cholesterol 41 mg/dl Cholesterol/HDL Ratio 3.0 LDL Cholesterol, Calculated 54 mg/dl Medical Emergencies . Who to Call and When: Medical Emergencies: If at any time you feel your situation is an emergency, please call 911 immediately. . Non-Emergent Contact Non-Emergency issues call your: Primary Care Provider Call Non-Emergent contact if: your pain is not controlled, you have any medication questions . . "Provider Documentation" section prepared by Guido Robles. .
--- NOTE | 2018-02-12 09:54 | Discharge Summary ---
Discharge Summary Date of Service Feb 12, 2018. Discharge Summary Admission Date: Feb 08, 2018 at 11:07 Discharge Date: Feb 12, 2018 Discharge Disposition: Rehab Principal Diagnosis: LEFT NINTH AND 10TH RIB FRACTURES S/P MECHANICAL FALL/AMBULATORY DYSFUNCTION Constipation (resolved) CHRONIC ANEMIA presumed hemorrhoid bleed Secondary Diagnoses/Problems: history of CAD/CHRONIC DIASTOLIC HF CHRONIC A-FIB ON COUMADIN AND DIGOXIN Hyponatremia RESOLVED Hypothyroidism Empirically treated for potential urinary tract infection history of COPD, OXYGEN AND STEROID DEPENDENT Osteoarthritis Medication Reconciliation New Medications: Hydrocodone/Acetaminophen 5MG/325MG ([place] 5MG/325MG) Tab 1 TAB PO Q6H PRN for Pain for 5 Days, #20 TAB PRN PAIN Lidocaine (Lidocaine) 1 Patch Tdsy 1 PATCH TD QAM for 5 Days, #5 PATCH apply to left anterior ribcage every 24 hours. take off old patch before applying new patch Phenylephrine In Hard Fat (Alisha-Med) 1 Ea Supp 1 EA MI DAILY PRN for Hemorrhoids for 5 Days, #5 SUPP Senna (Senokot) 8.6 Mg Tab 8.6 MG PO QAM for 30 Days, #30 TAB Tramadol HCl (Tramadol HCl) 50 Mg Tab 100 MG PO Q8 for 5 Days, #30 TAB Continued Medications: Alendronate Sodium (Alendronate Sodium) 70 Mg Tab 70 MG PO WK Amitriptyline Hcl (Elavil) 10 Mg Tab 20 MG PO HS Aspirin (Aspirin Chewable) 81 Mg Chew 81 MG PO DAILY Atorvastatin (Lipitor) 20 Mg Tab 20 MG PO HS, #30 B-Complex Vitamins (Vitamin B Complex) 1 Tab Tab 1 TAB PO DAILY Budesonide/Formoterol Fumarate (Symbicort 160/4.5 Inhaler ) Aero 2 PUFFS INH BID, INHALER Cholecalciferol (D-1000) 1,000 Unit Tab 1000 UNITS PO DAILY Digoxin (Digoxin) 0.125 Mg Tab 0.125 MG PO 6XWK mon, , wed, , fri, sat Docusate Sodium (Docusate Sodium) 100 Mg Cap 1 CAP PO BID for 7 Days, #14 CAP Doxycycline Hyclate (Doxycycline Hyclate) 100 Mg Tab 100 MG PO UD PRN for copd rescue kit Fluoxetine (Prozac) 10 Mg Cap 10 MG PO DAILY, CAP Furosemide (Lasix) 40 Mg Tab 40 MG PO 5XWK mon, tues, wed, , tue Home O2 Therapy (Oxygen) Gas 2 LITERS NA Levalbuterol (Levalbuterol HCl) 0.31 Mg/3 Ml Nebu 1 VIAL PO Q4 PRN for Shortness of Breath Levalbuterol Tartrate (Levalbuterol Tartrate Hfa) 45 Mcg/Act Aer 2 PUFF INH Q4 PRN for Wheezing Nitroglycerin (Nitrostat) 0.4 Mg Tab 0.4 MG UT PRN, 0 Refills Nitroglycerin (Nitroglycerin Transdermal) 0.2 Mg/Hr Dis 1 PATCH TD ONAMOFFPM Omeprazole (Prilosec) 20 Mg Capcr 20 MG PO BID, 0 Refills Potassium Chloride (Micro-K Ext Rel) 10 Meq Capcr 10 MEQ PO 5XWK, CAP tue, tue, tue, , tue Prednisone (Prednisone) 5 Mg Tab 5 MG PO DAILY Primidone (Mysoline) 50 Mg Tab 100 MG PO QPM Tiotropium [place] (Spiriva Handihaler) 30 Puff/540 Mcg Aerp 1 CAP INH DAILY, INHALER Warfarin Sodium (Coumadin) 1 Mg Tab 2 MG PO DAILY for 30 Days, #60 TAB 5 Refills Discontinued Medications: Acetaminophen (Tylenol) 500 Mg Tab 500 MG PO BID PRN for Pain, TAB Tramadol/Acetaminophen (Ultracet) 37.5 Mg/325 Mg Tab 1-2 TABS PO TID Admission Information HPI (per Admitting provider): Pt is 87 y/o F with PMH COPD oxygen dependent, CAD, A. fib on Coumadin and digoxin, chronic diastolic heart failure, hyperlipidemia, hypertension, arthritis presented to ER for fall. Pt states this morning ate breakfast, she then tried to make her bed and reports lost her balance and fell hitting back of head on her dresser. Pt denies LOC and reports remembering entire incident. States on floor and was unable to get up for approx 2 hours. C/O posterior OROSCO. Denies dizziness, CP, SOB prior or after fall. Pt c/o pain to L ribs and reports any movement of upper extremities or torso and deep breathing causes increased pain. Pt reports follows with Dr Cuenca - rheumatology for OA hips and knees and receives injections. She takes tramadol for pain. Pt reports chronic hip and knee pain and limited ROM, uses walker to ambulate. Pt denies any increased pain to hip or knees today. Denies fever/chills, diaphoresis, N/V/ D/C, dizziness, syncope, vision changes, neck pain, CP, SOB, orthopnea, palpitations, cough, sore throat, choking, otalgia, rhinorrhea, abdominal pain, paresthesias, extremity edema, rashes, urinary symptoms, weight loss. Physical Exam (per Admitting): General Appearance: WD/WN, + pertinent finding (resting comfortably in bed, any movement causes discomfort.) Head: normocephalic, + pertinent finding (+hematoma occipital region, no lacerations noted) Eyes: normal inspection, PERRL, EOMI, sclerae normal ENT: hearing grossly normal, pharynx normal, + pertinent finding (mucous membranes moist) Neck: supple, trachea midline, + pertinent finding (no spinous process tenderness to palpation, ROM intact) Respiratory/Chest: lungs clear, normal breath sounds, no respiratory distress, + pertinent finding (+tenderness to palpation left lateral lower ribs , +reproducible left sided CP with inspiration) Cardiovascular: + irregularly irregular (rate 90) Abdomen/GI: normal bowel sounds, non tender, soft Back: no CVA tenderness, + pertinent finding (no spinous process tenderness) Extremities/Musculoskelatal: no calf tenderness, no pedal edema, + pertinent finding (+tenderness to palpation bilateral hips and bilateral knees, very limited ROM of bilateral hips and bilateral knees. pedal pushes/pulls intact. Limited ROM bilateral shoulders pt reports causes L rib pain, + tenderness to palpation left shoulder, distal pulses intact, brisk capillary refill, sensation to light touch intact.) Neurologic/Psych: alert, normal mood/affect, oriented x 3 Skin: warm/dry, + pertinent finding (+ecchymosis to arms, left dorsal hand) Hospital Course Hospital Course and Discharge Plans LEFT NINTH AND 10TH RIB FRACTURES S/P MECHANICAL FALL/AMBULATORY DYSFUNCTION -injury from falling down prior to admission: left ninth and tenth rib fracture on admission CXR / rib X ray -Negative CT head, Negative bilateral femur x-rays / pelvis x-ray/ L shoulder x- ray for fracture. -repeat rib X ray 02/09/18: Subtle fractures of the left seventh and ninth ribs. No evidence of pneumothorax. -during hospital stay, patient's pain management has been difficult to manage and needed pain management evaluation on 02/10/18, patient had butrans patch started but was discontinued on 02/11/18 because family had concerns about potential QTC side effects in the future, pain was better controlled however with resumption of Lidocaine patch and pain management's recommended doses of Tramadol and [place]. Patient will be discharged on Lidocaine patch, Tramadol, and [place] -patient's narcotic requirements will likely decline with time and primary care doctor will need to make doing adjustments as needed -of note, pain management has commented that sertraline and tramadol can put patient as risk for serotonin syndrome and while this is less likely as per pain management assessment that patient has had high does of tramadol before, patient is now on higher tramadol doses Constipation -KUB 02/09/18 Nonobstructive bowel pattern. No evidence for fecal impaction. Degenerative change of the osseous structures. No secondary signs of free air. -Constipation resolved on 02/11/18 after multiple bowel regimens utilized. patient had blood in stool secondary to history of hemorrhoids, CBC stable -hemorrhoid suppositories have been attempted and patient to be discharged with hemorrhoid suppositories -have discussed with patient and family on this admission on risks and benefits of colonoscopy and they have declined colonoscopy evaluation as a potential intervention for other potential sources of the rectal bleed -patient to be discharged with senna to prevent narcotic induced constipation CHRONIC ANEMIA -Hgb stable after presumed hemorrhoid bleed HX CAD/CHRONIC DIASTOLIC HF -continue ASA, statin, nitro patch CHRONIC A-FIB ON COUMADIN -digoxin level added on this admission, continue digoxin -subtherapeutic INR 1.6 to 1.4 on admission days, because 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 serum osmolality 271 indicates a hypotonic hyponatremia. urine osmolality 188 and urine sodium 9 TSH is 0.225 which is low but T4 is normal 4.6, free T4 0.94 normal, and total T3 0.63 somewhat low normal, recommend Thyroid function tests to be repeated in 3 weeks -Serum sodium has normalized without intervention Empirically treated for potential urinary tract infection -Positive urinalysis on 02/07/18 and patient was empirically started on ceftriaxone for urinary tract infection, the urine culture had high counts of 3 organisms and recommendations of repeating the urine study, ceftriaxone continued up until 02/08/18 as the repeat urinalysis shows no bacteria COPD, OXYGEN AND STEROID DEPENDENT -prednisone 5 mg daily -continue nasal cannula -continue Spiriva, Symbicort daily and levalbuterol prn Osteoarthritis Chronic hip and knee pain. Uses tramadol, follows with rheumatology for joint injections x 3 months. -continue pain medication management and prednisone HLD -continue statin GERD -continue PPI DVT Prophylaxis: on coumadin [phone] Disposition: discharge to [facility] Patient will need to follow up with primary care doctor on further pain management adjustments, general health including cardiac health, thyroid health and Levothyroxine adjustments, and to follow with anticoagulation clinic for INR checks 02/17/2018 11:00 AM Joan Cole DO [facility] 02/23/2018 1:30 PM [facility] [place] Total time spent on discharge = 40 minutes This includes examination of the patient, discharge planning, medication reconciliation, and communication with other providers. Discharge Instructions see above
[2018-02-12 10:11] VITALS: BP 108/71; PULSE 66; TEMP 36.8; O2SAT 98
== END 2018-02-12 10:50 | DRG 184 ==
LOC: EDBD 13:59 → C.EDA 14:01 → C.MED 18:24 → ENRESERV 19:42 → OBSVTOIN 02-08 11:07 → C.MS2W 02-09 19:55
PROVIDERS: ADMIT Hospitalist; ATTEND Hospitalist
DX: S22.42XA Multiple fractures of ribs, left side, initial encounter for closed fracture (principal); E87.1 Hypo-osmolality and hyponatremia; I50.32 Chronic diastolic (congestive) heart failure; N39.0 Urinary tract infection, site not specified; K92.1 Melena; S00.03XA Contusion of scalp, initial encounter; R51 Headache; W01.190A Fall on same level from slipping, tripping and stumbling with subsequent striking against furniture, initial encounter; Y92.003 Bedroom of unspecified non-institutional (private) residence as the place of occurrence of the external cause; R79.1 Abnormal coagulation profile; R26.2 Difficulty in walking, not elsewhere classified; K59.03 Drug induced constipation; T40.2X5A Adverse effect of other opioids, initial encounter; K64.9 Unspecified hemorrhoids; J44.9 Chronic obstructive pulmonary disease, unspecified; I48.2 Chronic atrial fibrillation; I11.0 Hypertensive heart disease with heart failure; D64.9 Anemia, unspecified; I25.10 Atherosclerotic heart disease of native coronary artery without angina pectoris; G89.29 Other chronic pain; M16.10 Unilateral primary osteoarthritis, unspecified hip; M17.9 Osteoarthritis of knee, unspecified; K21.9 Gastro-esophageal reflux disease without esophagitis; E03.9 Hypothyroidism, unspecified; E78.5 Hyperlipidemia, unspecified; Z66 Do not resuscitate; Z99.81 Dependence on supplemental oxygen; Z79.01 Long term (current) use of anticoagulants; Z79.51 Long term (current) use of inhaled steroids; Z79.52 Long term (current) use of systemic steroids; Z79.82 Long term (current) use of aspirin; Z79.891 Long term (current) use of opiate analgesic; Z79.899 Other long term (current) drug therapy; Z88.1 Allergy status to other antibiotic agents; Z88.2 Allergy status to sulfonamides; Z88.8 Allergy status to other drugs, medicaments and biological substances; Z91.048 Other nonmedicinal substance allergy status

== ENCOUNTER → 2018-02-15 | Outpatient (CLI) | payer OTHER ==
[~2018-02-15] MED LIST changes: -ACET-1256 PO; +ANSS PR; +DOXY100C PO; +HYDR-5688 PO; +LDDP5 TD; +METH4PAK PO; +NTRTP2 TOP; +POTA-639 PO; +SENN-61 PO; +ULT50X PO; +WARF1TAB PO
[2018-02-15 08:56] LABS: INR 1.6 (0.9-1.1)
== END ==
LOC: C.LABCC 08:31
PROVIDERS: ATTEND Internal Medicine
DX: I48.91 Unspecified atrial fibrillation (principal)

== ENCOUNTER → 2018-02-20 | Outpatient (CLI) | payer OTHER ==
[~2018-02-20] MED LIST changes: -DOXY100C PO; -METH4PAK PO; -NTRTP2 TOP; -POTA-639 PO; -TRAMTAB5 PO
[2018-02-20 09:10] LABS: INR 1.6 (0.9-1.1)
== END ==
LOC: C.LABCC 08:25
PROVIDERS: ATTEND Internal Medicine
DX: I48.91 Unspecified atrial fibrillation (principal)

== ENCOUNTER 2018-02-25 01:10 | Emergency (ER) | payer OTHER ==
[~2018-02-25] VITALS: Ht 160 cm; Wt 79.9 kg
[2018-02-25 01:20] VITALS: TEMP 37.3; Ht 160 cm; Wt 79.9 kg
[2018-02-25] MEDS ORDERED: METHYLPREDNISOLONE 125 MG VIAL IV STA (01:28)
[2018-02-25] MEDS ORDERED: LEVALBUTEROL 1.25MG/3ML NEB INH STA (01:28)
--- NOTE | 2018-02-25 01:32 | EMERGENCY ROOM VISIT NOTE ---
History Report prepared by Jennifer: Doug Tolentino Under the Supervision of: Dr. Óscar Marcus M.D. First contact with patient: 01:18 Chief Complaint: SHORTNESS OF BREATH Stated Complaint: SHORT OF BREATH Nursing Triage Summary: Pt presents als for evaluation of sob since discharge from [facility] today at 1700. Per family pt having increased sob and some lower extremity edema. History of Present Illness The patient is an 87 year old female who presents to the Emergency Room with complaints of worsening shortness of breath beginning this evening. She currently rates her pain a 0/10 in severity. The patient states she was recently discharged from the hospital from a fall. She reports she broke ribs 9 and 10. The patient's daughter notes she arrived at the patient's house at 2100 and the patient was experiencing shortness of breath and swelling and redness in her lower legs. She states she raised the patient's legs at 2100, and it helped the swelling. The patient reports she has a history of CHF, COPD, and a- fib. She notes she was given nebulizers at 2200 and in the ambulance here, and they did not help. The patient denies abdominal pain, diarrhea, urinary symptoms , chest pain, chest tightness, and receiving antibiotics in the ambulance. Source of History: patient Onset: this evening Symptom Intensity: 0/10 Quality: other (SOB) Timing: worsening Associated Symptoms: No chest pain, No abdominal pain, No diarrhea, No urinary symptoms Note: Associated symptoms: swelling and redness to the legs Denies: chest tightness Review of Systems See HPI for pertinent positives & negatives. A total of 10 systems reviewed and were otherwise negative. 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 (19) GERD (gastroesophageal reflux disease) (20) History of DVT (deep vein thrombosis) (21) History of pulmonary embolism (22) History of TIA (transient ischemic attack) (23) History of urinary calculi (24) Hypomagnesemia (25) Osteoporosis (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, postinflammatory (27) Right flank pain (28) SOB (shortness of breath) (29) Supratherapeutic INR (30) Tremor, essential (31) Warfarin anticoagulation Surgical Problems: (1) Status post cardiac catheterization (2) Status post cataract extraction (3) Status post hysterectomy Family History Lung disease FATHER Melanoma BROTHER Stroke BROTHER Social History Smoking Status: Never Smoker Alcohol Use: none Drug Use: none Marital Status: Housing Status: lives alone Occupation Status: retired Current/Historical Medications Scheduled Alendronate Sodium (Alendronate Sodium), 70 MG PO WK Amitriptyline Hcl (Elavil), 20 MG PO HS Aspirin (Aspirin Chewable), 81 MG PO DAILY Atorvastatin (Lipitor), 20 MG PO HS B-Complex Vitamins (Vitamin B Complex), 1 TAB PO DAILY Budesonide/Formoterol Fumarate (Symbicort 160/4.5 Inhaler ), 2 PUFFS INH BID Cholecalciferol (D-1000), 1,000 UNITS PO DAILY Digoxin (Digoxin), 0.125 MG PO 6XWK Docusate Sodium (Docusate Sodium), 1 CAP PO BID Doxycycline Hyclate (Vibramycin), 100 MG PO BID Fluoxetine (Prozac), 10 MG PO DAILY Furosemide (Lasix), 40 MG PO 5XWK Methylprednisolone (Medrol Dosepak), 1 PKT PO UD Nitroglycerin (Nitrostat), 0.4 MG UT PRN Nitroglycerin (Nitroglycerin Transdermal), 1 PATCH TD ONAMOFFPM Omeprazole (Prilosec), 20 MG PO BID Potassium Ext Rel (Klor-Con), 10 MEQ PO 5XWK Prednisone (Prednisone), 5 MG PO DAILY Primidone (Mysoline), 100 MG PO QPM Tiotropium [place] (Spiriva Handihaler), 1 CAP INH DAILY Warfarin Sodium (Coumadin), 3 MG PO DAILY Scheduled PRN Doxycycline Hyclate (Doxycycline Hyclate), 100 MG PO UD PRN for copd rescue kit Levalbuterol (Levalbuterol HCl), 1 VIAL PO Q4 PRN for Shortness of Breath Levalbuterol Tartrate (Levalbuterol Tartrate Hfa), 2 PUFF INH Q4 PRN for Wheezing Tramadol/Acetaminophen (Ultracet), 1 TAB PO Q6 PRN for Pain Miscellaneous Medications Home O2 Therapy (Oxygen), 2 LITERS NA Allergies Coded Allergies: Levofloxacin (Verified Allergy, Mild, ITCHING AND REDNESS AT IV SITE, ) Adhesives (Verified Allergy, Unknown, `, 02/25/18) Fluticasone (Verified Allergy, Unknown, UNKNOWN, 02/25/18) Sulfa Antibiotics (Verified Allergy, Unknown, Unknown, 02/25/18) Albuterol (Verified Adverse Reaction, Mild, TACHYCARDIA, 02/06/18) Physical Exam Vital Signs Date Time Temp Pulse Resp B/P (MAP) Pulse Ox O2 Delivery O2 Flow Rate FiO2 02/25/18 04:25 88 18 141/77 94 02/25/18 02:03 96 17 93 BiPAP/CPAP 02/25/18 01:39 86 02/25/18 01:20 37.3 84 22 152/83 93 Room Air Physical Exam GENERAL: Patient is elderly appearing and in moderate distress. EYES: No scleral icterus, unremarkable pupils. ENT: Mucous membranes moist, no nasal congestion. NECK: No masses appreciated, no meningismus, trachea is midline. RESPIRATORY: Dyspnea. Diffuse wheezes in all lung jaramillo, tachypneic. CARDIOVASCULAR: Irregularly irregular rate and rhythm. No murmurs, rubs, gallops appreciated. GASTROINTESTINAL: Abdomen soft, nontender, no peritonitis. Bowel sounds positive. No masses appreciated. BACK: No midline tenderness, no CVA tenderness EXTREMITIES: Normal motion all extremities, no cyanosis. Mild erythema to the right anterior john. Pitting edema to the bilateral legs. NEUROLOGIC: Alert and oriented, no acute motor or sensory deficits, no focal weakness, cranial nerves grossly intact. SKIN: No jaundice, no diaphoresis. Medical Decision & Procedures ER Provider Diagnostic Interpretation: X ray results are stated below per my interpretation: Chest: 1 view: No infiltrate, no effusion, normal cardiac border. Bilateral scaring noted. Blunted right costophrenic angle - similar to previous. Enlarged heart. No pneumonia appreciated. Similar to previous. Stat Rad Radiology results and stated below per my review and radiologist interpretation: US VENOUS BILATERAL LOWER EXTREMITIES: No evidence of DVT in the visualized veins of the bilateral lower extremities. Increased phasicity of the waveforms in both legs shows the possibility of right -sided heart failure or tricuspid regurgitation. Radiologist: Timur Rodriguez MD Laboratory Results 02/25/18 01:51 Red Blood Count 3.75, Mean Corpuscular Volume 90.4, Mean Corpuscular Hemoglobin 28.5, Mean Corpuscular Hemoglobin Concent 31.6, Mean Platelet Volume 8.7, Neutrophils (%) (Auto) 75.0, Lymphocytes (%) (Auto) 15.4, Monocytes (%) (Auto) 7.8, Eosinophils (%) (Auto) 1.4, Basophils (%) (Auto) 0.2, Neutrophils # (Auto) 9.32, Lymphocytes # (Auto) 1.92, Monocytes # (Auto) 0.97, Eosinophils # (Auto) 0.17, Basophils # (Auto) 0.03 02/25/18 01:51 Test 02/25/18 01:51 02/25/18 01:52 02/25/18 02:08 White Blood Count 12.44 K/uL (4.8-10.8) Red Blood Count 3.75 M/uL (4.2-5.4) Hemoglobin 10.7 g/dL (12.0-16.0) Hematocrit 33.9 % (37-47) Mean Corpuscular Volume 90.4 fL (80-100) Mean Corpuscular Hemoglobin 28.5 pg (25-34) Mean Corpuscular Hemoglobin Concent 31.6 g/dl (32-36) Platelet Count 282 K/uL (130-400) Mean Platelet Volume 8.7 fL (7.4-10.4) Neutrophils (%) (Auto) 75.0 % Lymphocytes (%) (Auto) 15.4 % Monocytes (%) (Auto) 7.8 % Eosinophils (%) (Auto) 1.4 % Basophils (%) (Auto) 0.2 % Neutrophils # (Auto) 9.32 K/uL (1.4-6.5) Lymphocytes # (Auto) 1.92 K/uL (1.2-3.4) Monocytes # (Auto) 0.97 K/uL (0.11-0.59) Eosinophils # (Auto) 0.17 K/uL (0-0.5) Basophils # (Auto) 0.03 K/uL (0-0.2) RDW Standard Deviation 46.4 fL (36.4-46.3) RDW Coefficient of Variation 14.1 % (11.5-14.5) Immature Granulocyte % (Auto) 0.2 % Immature Granulocyte # (Auto) 0.03 K/uL (0.00-0.02) Prothrombin Time 16.9 SECONDS (9.0-12.0) Prothromb Time International Ratio 1.6 (0.9-1.1) Activated Partial Thromboplast Time 30.9 SECONDS (21.0-31.0) Partial Thromboplastin Ratio 1.2 Anion Gap 6.0 mmol/L (3-11) Est Creatinine Clear Calc Drug Dose 45.4 ml/min Estimated GFR () 71.4 Estimated GFR (Non- 61.6 BUN/Creatinine Ratio 11.6 (10-20) Calcium Level 9.4 mg/dl (8.5-10.1) Magnesium Level 2.1 mg/dl (1.8-2.4) Troponin I < 0.015 ng/ml (0-0.045) Digoxin Level 0.8 ng/ml (0.8-2.0) Venous Blood pH 7.37 (7.36-7.41) Venous Blood Partial Pressure CO2 49 mmHg (38.0-50.0) Venous Blood Partial Pressure O2 23 mmHg Venous Blood HCO3 28 mmol/L Venous Blood Oxygen Saturation < 60.0 % Venous Blood Base Excess 2.0 mEq/L Bedside Lactic Acid Venous 1.73 mmol/L (0.90-1.70) Laboratory results as reviewed by me. Medications Administered Medications (Trade) Dose Ordered Sig/Kiel Route Start Time Stop Time Status Last Admin Dose Admin Levalbuterol (Xopenex 1.25MG/ 3ML Neb) 2.5 mg NOW STAT INH 02/25/18 01:28 02/25/18 01:29 DC 02/25/18 01:28 2.5 MG Methylprednisolone Sodium Succinate (Solu-Medrol IV) 80 mg NOW STAT IV 02/25/18 01:28 02/25/18 01:29 DC 02/25/18 02:01 80 MG ECG Per My Interpretation Indication: SOB/dyspnea Rate (beats per minute): 86 Rhythm: atrial fibrillation Findings: no acute ischemic change, other (QTc of 390) ED Course 0120: The patient was evaluated in room B04B. A complete history and physical exam was performed. 0244: I reevaluated the patient. She states her breathing is back to baseline. She is still experiencing some wheezes on examination. The daughter thinks the breathing is not at baseline. The patient has a history of PEs. She denies chest pain and reoccurring shortness of breath. The patient reports this does not feel like her previous PEs. She is agreeable to an ultrasound of the legs. 0337: I has a long discussion with family and the patient. She is adamant about going home and not staying in the hospital. She agrees to returning if worsening symptoms and to a temperature recheck. If her temperature is elevated , she agreed to stay. Her leg swelling has been since she was in the hospital and has worsened since she got home. Her family agreed to have her take an extra dose of Lasix when she wakes up in the morning. She is [id number] around 91- 93 and admits to using 2L of O2 at home. Repeat lung exam still has mild wheezing on auscultation. Medical Decision Differential: Infectious, Reactive Airway Disease, Pneumonia, Pneumothorax, COPD , CHF, ACS, Pulmonary Embolism, MSK, GI, Dissection, amongst other etiologies entertained. 87 yr old female arrives with worsening shob this evening. Notes bilateral leg swelling which has been stable last week or so while in local [facility]pc. She is mildly hypoxic on RA but uses 2 L NC at home usually. She has resolution of symptoms with Xopenex and IV solumedrol. Breathing comfortably though still with some wheezing on exam and mildly low O2 91-93% on RA. Patient states she feels fine and wishes to go home. Mild bump in lactate non- specific but without significant hypoxia, acidosis nor fever I do not feel this represents sepsis. No clear evidence of pneumonia on CXR. Suspect WBC mild elevation is more stress response. This does not feel like CHF exacerbation and with leg swelling stable recently seems reasonable just giving extra dose lasix when she wakes up in am to see if that helps with leg swelling. With resolution of SHOB symptoms I do not feel that CT PE indicated with negative bilateral leg duplex and fact she is chronically on coumadin. We did discuss need to follow up with PCP/Clinic regarding mildly low INR here. She is aware that we would be happy to have her further observed in hospital but she is adamant about going home. Will start Doxy/Medrol pack which she has tolerated well before with good success. Discussed at length symptoms requiring RTED. Medication Reconcilliation Current Medication List: was personally reviewed by me Blood Pressure Screening Patient's blood pressure: Elevated blood pressure Blood pressure disposition: Referred to PCP Impression Primary Impression: Acute exacerbation of chronic obstructive pulmonary disease (COPD) Additional Impression: Leg swelling Scribe Attestation The scribe's documentation has been prepared under my direction and personally reviewed by me in its entirety. I confirm that the note above accurately reflects all work, treatment, procedures, and medical decision making performed by me. Departure Information Dispostion Home / Self-Care Prescriptions Methylprednisolone (MEDROL DOSEPAK) 4 Mg Fidencio 1 PKT PO UD for 6 Days, #1 PKT Prov: Óscar Marcus M.D. 02/25/18 Doxycycline Hyclate (VIBRAMYCIN) 100 Mg Cap 100 MG PO BID for 10 Days, #20 CAP Prov: Óscar Marcus M.D. 02/25/18 Referrals Munson Fernley (PCP) Forms HOME CARE DOCUMENTATION FORM, IMPORTANT VISIT INFORMATION Patient Instructions My [facility] Additional Instructions Rest and avoid lung irritants. Use Nebulizer every 4 to 6 hours as needed. Return if requiring more than this. Call your Coumadin clinic to discuss INR of 1.6 Call 911 or Return immediately if worsening shortness of breath, chest pain, passing out, fevers or other concerns. We are always here to help. Take an extra dose of your Lasix in the morning. Please follow up with your primary provider in the next few days for repeat evaluation. Problem Qualifiers
[2018-02-25] MEDS ORDERED: POTA-639 PO (01:49)
[2018-02-25] MEDS ORDERED: NTRTP2 TOP (01:53)
[2018-02-25] MEDS ORDERED: TRAMTAB5 PO (01:58)
[2018-02-25 02:03] VITALS: PULSE 96; O2SAT 93
[2018-02-25 02:04] LABS: BASO % 0.2 %; BASO ABS # 0.03 K/uL (0-0.2); EOS % 1.4 %; EOS ABS # 0.17 K/uL (0-0.5); HEMATOCRIT 33.9 % (37-47); HEMOGLOBIN 10.7 g/dL (12.0-16.0); IG# 0.03 K/uL (0.00-0.02); LYMPH % 15.4 %; LYMPH ABS # 1.92 K/uL (1.2-3.4); MEAN CELL VOLUME 90.4 fL (80-100); MEAN CORPUSCULAR HEMOGLOBIN 28.5 pg (25-34); MEAN CORPUSCULAR HGB CONC 31.6 g/dl (32-36); MEAN PLATELET VOLUME 8.7 fL (7.4-10.4); MONO % 7.8 %; MONO ABS # 0.97 K/uL (0.11-0.59); NEUT ABS # 9.32 K/uL (1.4-6.5); PLATELET COUNT 282 K/uL (130-400); RED CELL DISTRIBUTION WIDTH CV 14.1 % (11.5-14.5); RED CELL DISTRIBUTION WIDTH SD 46.4 fL (36.4-46.3); WHITE BLOOD COUNT 12.44 K/uL (4.8-10.8)
[2018-02-25 02:13] LABS: INR 1.6 (0.9-1.1); PTT PATIENT 30.9 SECONDS (21.0-31.0)
[2018-02-25 02:23] LABS: BLOOD UREA NITROGEN 10 mg/dl (7-18); CALCIUM 9.4 mg/dl (8.5-10.1); CARBON DIOXIDE 26 mmol/L (21-32); CREATININE 0.84 mg/dl (0.60-1.20); GLUCOSE 113 mg/dl (70-99); POTASSIUM 3.7 mmol/L (3.5-5.1); SODIUM 137 mmol/L (136-145)
[2018-02-25] MEDS ORDERED: DOXYCYCLINE HYCLATE 100 MG CAP PO ONE (03:45)
[2018-02-25] MEDS ORDERED: DOXY100C PO (03:49)
[2018-02-25] MEDS ORDERED: METH4PAK PO (03:49)
[2018-02-25 04:25] VITALS: BP 141/77; PULSE 88; O2SAT 94
--- NOTE | 2018-02-25 06:40 | DIAGNOSTIC IMAGING REPORT ---
CHEST ONE VIEW PORTABLE CLINICAL HISTORY: 87 years-old Female presenting with SHOB. TECHNIQUE: Portable upright AP view of the chest was obtained. COMPARISON: 12/22/2017. FINDINGS: Atherosclerosis of aortic arch. Cardiac silhouette enlarged. Calcified right paramediastinal lesion correlates with a calcified right thyroid lobe nodule on prior CT from 2013. Mild pulmonary vascular prominence. Unchanged minimal hazy right basilar opacity with small right pleural effusion. Trace left pleural effusion may be present. No large pneumothorax. Osteopenia suspected. IMPRESSION: 1. Cardiomegaly with unchanged small right pleural effusion. No vibha pulmonary edema though mild volume overload may be present. Electronically signed by: Lewis Bellamy M.D. 02/25/2018 6:39 AM Dictated Date/Time: 02/25/2018 6:37 AM
--- NOTE | 2018-02-25 08:18 | DIAGNOSTIC IMAGING REPORT ---
VENOUS DOPPLER LWR EXT BILA CLINICAL HISTORY: 87 years-old Female presenting with Bilateral leg swelling (L>R) with history PE/DVT. INR low. TECHNIQUE: Real-time grayscale and color and spectral Doppler ultrasound imaging of the veins of the bilateral lower extremities was performed. Compression and augmentation were also utilized. COMPARISON: 10/21/2014. FINDINGS: Right: Common femoral vein: Patent. Greater saphenous vein: Patent. Deep femoral vein: Patent. Femoral vein: Patent. Popliteal vein: Patent. Calf veins: Limited visualization. Left: Common femoral vein: Patent. Greater saphenous vein: Patent. Deep femoral vein: Patent. Femoral vein: Patent. Popliteal vein: Patent. Calf veins: Limited visualization. Other: None. IMPRESSION: No evidence of deep venous thrombosis. Electronically signed by: Lewis Bellamy M.D. 02/25/2018 8:16 AM Dictated Date/Time: 02/25/2018 8:16 AM
== END 2018-02-25 04:25 | disposition home or self-care (01) ==
LOC: EDBD 01:15 → C.EDB 01:16
DX: J44.1 Chronic obstructive pulmonary disease with (acute) exacerbation (principal); R60.0 Localized edema; I48.91 Unspecified atrial fibrillation; I11.0 Hypertensive heart disease with heart failure; I50.30 Unspecified diastolic (congestive) heart failure; J96.10 Chronic respiratory failure, unspecified whether with hypoxia or hypercapnia; I25.10 Atherosclerotic heart disease of native coronary artery without angina pectoris; E78.5 Hyperlipidemia, unspecified; E78.01 Familial hypercholesterolemia; Z86.718 Personal history of other venous thrombosis and embolism; Z86.711 Personal history of pulmonary embolism; Z86.73 Personal history of transient ischemic attack (TIA), and cerebral infarction without residual deficits; Z79.01 Long term (current) use of anticoagulants; Z79.82 Long term (current) use of aspirin; Z79.899 Other long term (current) drug therapy; Z79.51 Long term (current) use of inhaled steroids; Z88.1 Allergy status to other antibiotic agents; Z91.048 Other nonmedicinal substance allergy status; Z88.9 Allergy status to unspecified drugs, medicaments and biological substances; Z88.2 Allergy status to sulfonamides